=== PATIENT | male | born 1945 | race Caucasian/White ===

== ENCOUNTER 2020-06-22 11:05 | Inpatient (IN) ==
[2020-06-22] MEDS ORDERED: Isovue-370 500 ML BOTTLE IVP ONE (11:41)
[2020-06-22 12:18] LABS: Basophils % 0.2 %; Eosinophils % 0.1 %; Hematocrit 49.8 % (37.5-50.1); Hemoglobin 15.9 g/dL (12.9-16.9); Immature Granulocytes % 0.6 % (0-4); Immature Platelets 6.2 % (1.1-6.1); Lymphocytes # 2.3 K/mcL (0.6-4.6); Lymphocytes % 23.4 %; Mean Corpuscular HGB Conc 31.9 g/dL (31.6-35.5); Mean Corpuscular Hemoglobin 29.9 pg (28.0-33.3); Mean Corpuscular Volume 93.8 fL (83.0-100.0); Mean Platelet Volume 10.8 fL (9.4-12.4); Monocytes # 1.2 K/mcL (0.0-1.3); Monocytes % 12.3 %; Neutrophils # 6.2 K/mcL (1.6-8.9); Platelet Count 132 K/mcL (140-400); Red Blood Count 5.31 M/mcL (4.19-5.50); Red Cell Distribution Width 12.9 % (11.5-14.5); Segmented Neutrophils % 63.4 %; White Blood Count 9.8 K/mcL (4.3-11.1)
[2020-06-22 12:35] LABS: Alanine Aminotransferase 43 Units/L (7-52); Albumin 3.9 g/dL (3.5-5.7); Albumin/Globulin Ratio 1.2 (1.1-2.2); Alkaline Phosphatase 55 Units/L (34-104); Aspartate Amino Transferase 31 Units/L (13-39); BUN/Creatinine Ratio 22 (6-26); Bilirubin,Direct 0.1 mg/dL (0.0-0.2); Bilirubin,Indirect 0.3 mg/dL (0.0-1.0); Bilirubin,Total 0.4 mg/dL (0.3-1.0); Blood Urea Nitrogen 23 mg/dL (8-23); Carbon Dioxide 26 mEq/L (23-29); Chloride 100 mEq/L (98-107); Globulin 3.3 g/dL (2.4-3.5); Glucose 197 mg/dL (70-105); Lipase 23 Units/L (11-82); Magnesium 1.4 mg/dL (1.6-2.6); Osmolality,Calculated 289 (280-300); Potassium 4.4 mEq/L (3.5-5.1); Sodium 135 mEq/L (136-145); Total Protein 7.2 g/dL (6.4-8.9); Troponin I < 0.03 ng/mL (< 0.04); eGFR For African Americans > 60 (> 60); eGFR For Non-African Americans > 60 (> 60)
[2020-06-22 13:37] LABS: Bilirubin,Urine Negative (Negative); Blood,Urine Large (Negative); Clarity,Urine Clear (Clear); Color,Urine Yellow (Yellow); Glucose,Urine (UA) 200 mg/dL (Normal); Ketones,Urine 20 mg/dL (Negative); Leukocyte Esterase,Urine Negative (Negative); Mucus,Urine Few per lpf (None-Few); Nitrite,Urine Negative (Negative); PH,Urine 5.5 pH Units (5.0-8.0); Protein,Urine 100 mg/dL (Neg-Trace); RBC,Urine TNTC per hpf (0-3); Renal Epithelial Cells,Urine Few per hpf (None-Few); Specific Gravity,Urine > 1.030 (1.010-1.025); Squamous Epithelial Cell,Urine Few per hpf (None-Few); Transitional Epi Cells,Urine Few per hpf (None-Few); Urobilinogen,Urine Normal (Normal); WBC,Urine 0-3 per hpf (0-3)
[2020-06-22 13:58] LABS: Adenovirus Not Detected (Not Detect); Bordetella Pertussis Not Detected (Not Detect); Chlamydophila pneumoniae Not Detected (Not Detect); Coronavirus 229E Not Detected (Not Detect); Coronavirus HKU1 Not Detected (Not Detect); Coronavirus NL63 Not Detected (Not Detect); Coronavirus OC43 Not Detected (Not Detect); Human Metapneumovirus Not Detected (Not Detect); Human Rhinovirus/Enterovirus Not Detected (Not Detect); Influenza A Subtype 2009 H1 Not Detected (Not Detect); Influenza B Not Detected (Not Detect); Mycoplasma pneumoniae Not Detected (Not Detect); Parainfluenza Virus 1 Not Detected (Not Detect); Parainfluenza Virus 2 Not Detected (Not Detect); Parainfluenza Virus 3 Not Detected (Not Detect); Parainfluenza Virus 4 Not Detected (Not Detect); Respiratory Syncytial Virus Not Detected (Not Detect)
[2020-06-22 13:59] LABS: SARS-CoV-2 DETECTED (Not Detect)
[2020-06-22] MEDS ORDERED: dexAMETHasone 4 MG TABLET PO SCH (14:00)
[2020-06-22] MEDS ORDERED: Naloxone 0.4 MG/ML INJ IVP PRN (15:30)
[2020-06-22] MEDS ORDERED: Mag Hydrox/Al Hydrox/Simeth 30 ML UDC PO PRN (15:30)
[2020-06-22] MEDS ORDERED: Dextrose Gel 15 GM/37.5 ML TUBE PO PRN ×2 (15:37)
[2020-06-22] MEDS ORDERED: D5% in Water 1,000 ML IVC PRN (15:37)
[2020-06-22] MEDS ORDERED: *HR* Dextrose 50 % in Water (Vial) 50 ML VIAL IVP PRN (15:37)
[2020-06-22 16:17] LABS: C-Reactive Protein 19 mg/L (Less than 10); Lactate Dehydrogenase 225 Units/L (140-271)
[2020-06-22 16:35] LABS: Ferritin 257 ng/mL (20-250)
[2020-06-22] MEDS: Ipratropium 1 PUFF INHALER IH SCH ×2 (16:48→20:28)
[2020-06-22 16:50] LABS: Fibrinogen 458 mg/dL (169-393)
[2020-06-22 16:55] LABS: D-Dimer 537 ng/mLFEU (0-500)
[2020-06-22] MEDS: Dexamethasone 4 MG/ML VIAL IVP SCH (17:02)
[2020-06-22] MEDS: Ondansetron ODT 4 MG TAB.RAPDIS SL PRN (17:03)
[2020-06-22] MEDS: Insulin LISPRO 300 UNITS/3 ML VIAL SUBQ SCH ×2 (18:19→20:31)
[2020-06-23] MEDS: Ipratropium 1 PUFF INHALER IH SCH ×7 (00:04→23:11)
[2020-06-23 05:35] LABS: Basophils % 0.1 %; Hematocrit 49.6 % (37.5-50.1); Hemoglobin 15.3 g/dL (12.9-16.9); Immature Granulocytes % 0.5 % (0-4); Lymphocytes # 2.5 K/mcL (0.6-4.6); Lymphocytes % 30.8 %; Mean Corpuscular HGB Conc 30.8 g/dL (31.6-35.5); Mean Corpuscular Hemoglobin 29.3 pg (28.0-33.3); Mean Platelet Volume 10.7 fL (9.4-12.4); Monocytes # 1.1 K/mcL (0.0-1.3); Monocytes % 14.2 %; Neutrophils # 4.4 K/mcL (1.6-8.9); Platelet Count 136 K/mcL (140-400); Red Blood Count 5.22 M/mcL (4.19-5.50); Red Cell Distribution Width 12.8 % (11.5-14.5); Segmented Neutrophils % 54.4 %
[2020-06-23 05:59] LABS: Alanine Aminotransferase 35 Units/L (7-52); Albumin 3.7 g/dL (3.5-5.7); Albumin/Globulin Ratio 1.2 (1.1-2.2); Alkaline Phosphatase 49 Units/L (34-104); Aspartate Amino Transferase 26 Units/L (13-39); BUN/Creatinine Ratio 23 (6-26); Bilirubin,Total 0.4 mg/dL (0.3-1.0); Blood Urea Nitrogen 22 mg/dL (8-23); Calcium 8.9 mg/dL (8.6-10.3); Carbon Dioxide 27 mEq/L (23-29); Chloride 100 mEq/L (98-107); Globulin 3.2 g/dL (2.4-3.5); Glucose 189 mg/dL (70-105); Magnesium 1.8 mg/dL (1.6-2.6); Osmolality,Calculated 290 (280-300); Potassium 4.4 mEq/L (3.5-5.1); Sodium 136 mEq/L (136-145); Total Protein 6.9 g/dL (6.4-8.9); eGFR For African Americans > 60 (> 60); eGFR For Non-African Americans > 60 (> 60)
[2020-06-23] MEDS ORDERED: *HR* Enoxaparin 40 MG/0.4 ML SYRINGE SQ SCH (06:00)
[2020-06-23] MEDS: Aspirin Enteric Coated 81 MG Tablet PO SCH (09:12)
[2020-06-23] MEDS: Dexamethasone 4 MG/ML VIAL IVP SCH (09:12)
[2020-06-23] MEDS: Insulin LISPRO 300 UNITS/3 ML VIAL SUBQ SCH ×4 (09:14→21:13)
[2020-06-23] MEDS: Ondansetron ODT 4 MG TAB.RAPDIS SL PRN (14:28)
[2020-06-23] MEDS: *HR* Enoxaparin 40 MG/0.4 ML SYRINGE SQ SCH (17:18)
[2020-06-24] MEDS: Ipratropium 1 PUFF INHALER IH SCH ×6 (04:00→23:49)
[2020-06-24] MEDS: Ondansetron ODT 4 MG TAB.RAPDIS SL PRN (04:21)
[2020-06-24] MEDS: *HR* Enoxaparin 40 MG/0.4 ML SYRINGE SQ SCH ×2 (05:02→16:55)
[2020-06-24 07:21] LABS: Basophils % 0.1 %; Eosinophils % 0.1 %; Immature Granulocytes % 0.4 % (0-4); Red Cell Distribution Width 12.8 % (11.5-14.5)
[2020-06-24 07:23] LABS: Immature Platelets 5.6 % (1.1-6.1); Lymphocytes # 2.5 K/mcL (0.6-4.6); Lymphocytes % 27.4 %; Mean Corpuscular HGB Conc 32.6 g/dL (31.6-35.5); Mean Corpuscular Hemoglobin 31.8 pg (28.0-33.3); Mean Corpuscular Volume 97.5 fL (83.0-100.0); Mean Platelet Volume 10.7 fL (9.4-12.4); Monocytes # 1.4 K/mcL (0.0-1.3); Neutrophils # 5.1 K/mcL (1.6-8.9); Platelet Count 126 K/mcL (140-400); Red Blood Count 4.72 M/mcL (4.19-5.50)
[2020-06-24 07:44] LABS: Alanine Aminotransferase 39 Units/L (7-52); Albumin 3.6 g/dL (3.5-5.7); Albumin/Globulin Ratio 1.1 (1.1-2.2); Alkaline Phosphatase 50 Units/L (34-104); Aspartate Amino Transferase 33 Units/L (13-39); BUN/Creatinine Ratio 22 (6-26); Bilirubin,Total 0.5 mg/dL (0.3-1.0); Blood Urea Nitrogen 22 mg/dL (8-23); Calcium 8.8 mg/dL (8.6-10.3); Carbon Dioxide 28 mEq/L (23-29); Chloride 100 mEq/L (98-107); Globulin 3.2 g/dL (2.4-3.5); Glucose 195 mg/dL (70-105); Osmolality,Calculated 289 (280-300); Potassium 4.4 mEq/L (3.5-5.1); Sodium 135 mEq/L (136-145); Total Protein 6.8 g/dL (6.4-8.9); eGFR For African Americans > 60 (> 60); eGFR For Non-African Americans > 60 (> 60)
[2020-06-24] MEDS: Aspirin Enteric Coated 81 MG Tablet PO SCH (08:37)
[2020-06-24] MEDS: Insulin LISPRO 300 UNITS/3 ML VIAL SUBQ SCH ×4 (08:37→20:10)
[2020-06-24] MEDS: Furosemide 20 MG TABLET PO SCH (08:37)
[2020-06-24] MEDS: lisinopriL 10 MG TABLET PO SCH (08:37)
[2020-06-24] MEDS: Isosorbide MONOnitrate (24 HR) 30 MG TAB.ER.24H PO SCH (08:37)
[2020-06-24] MEDS: Dexamethasone 4 MG/ML VIAL IVP SCH (08:38)
[2020-06-24] MEDS ORDERED: NON-FORMULARY MEDICATION 1 EACH EACH (Enalapril/Hydrochlorothiazide [Enalapril-Hctz 5-12.5 PO SCH (09:00)
[2020-06-24] MEDS ORDERED: hydroCHLOROthiazide 25 MG TABLET PO SCH (09:00)
[2020-06-24] MEDS: Insulin DETEMIR 100 UNIT/ML X5UNITS SUBQ SCH ×2 (14:31→20:09)
[2020-06-25] MEDS: Ipratropium 1 PUFF INHALER IH SCH ×5 (04:36→20:07)
[2020-06-25] MEDS: *HR* Enoxaparin 40 MG/0.4 ML SYRINGE SQ SCH ×2 (05:27→17:27)
[2020-06-25 07:19] LABS: Basophils % 0.1 %; Hematocrit 44.2 % (37.5-50.1); Hemoglobin 14.4 g/dL (12.9-16.9); Immature Granulocytes % 0.4 % (0-4); Lymphocytes # 2.6 K/mcL (0.6-4.6); Lymphocytes % 33.6 %; Mean Corpuscular HGB Conc 32.6 g/dL (31.6-35.5); Mean Corpuscular Volume 95.1 fL (83.0-100.0); Mean Platelet Volume 10.8 fL (9.4-12.4); Monocytes # 1.3 K/mcL (0.0-1.3); Monocytes % 16.4 %; Neutrophils # 3.8 K/mcL (1.6-8.9); Platelet Count 146 K/mcL (140-400); Red Blood Count 4.65 M/mcL (4.19-5.50); Red Cell Distribution Width 12.7 % (11.5-14.5); Segmented Neutrophils % 49.5 %; White Blood Count 7.7 K/mcL (4.3-11.1)
[2020-06-25 07:34] LABS: Alanine Aminotransferase 38 Units/L (7-52); Albumin 3.4 g/dL (3.5-5.7); Albumin/Globulin Ratio 1.1 (1.1-2.2); Alkaline Phosphatase 44 Units/L (34-104); Aspartate Amino Transferase 32 Units/L (13-39); BUN/Creatinine Ratio 30 (6-26); Bilirubin,Total 0.4 mg/dL (0.3-1.0); Blood Urea Nitrogen 32 mg/dL (8-23); Calcium 9.1 mg/dL (8.6-10.3); Carbon Dioxide 29 mEq/L (23-29); Chloride 99 mEq/L (98-107); Glucose 200 mg/dL (70-105); Osmolality,Calculated 293 (280-300); Potassium 4.2 mEq/L (3.5-5.1); Sodium 135 mEq/L (136-145); Total Protein 6.4 g/dL (6.4-8.9); eGFR For African Americans > 60 (> 60); eGFR For Non-African Americans > 60 (> 60)
[2020-06-25] MEDS: Insulin LISPRO 300 UNITS/3 ML VIAL SUBQ SCH ×4 (08:32→21:00)
[2020-06-25] MEDS: Furosemide 20 MG TABLET PO SCH (08:34)
[2020-06-25] MEDS: Isosorbide MONOnitrate (24 HR) 30 MG TAB.ER.24H PO SCH (08:34)
[2020-06-25] MEDS: lisinopriL 10 MG TABLET PO SCH (08:34)
[2020-06-25] MEDS: Dexamethasone 4 MG/ML VIAL IVP SCH (08:35)
[2020-06-25] MEDS: Insulin DETEMIR 100 UNIT/ML X5UNITS SUBQ SCH ×2 (08:36→21:02)
[2020-06-25] MEDS: Ondansetron ODT 4 MG TAB.RAPDIS SL PRN (20:58)
[2020-06-26] MEDS: Ipratropium 1 PUFF INHALER IH SCH ×6 (00:06→20:15)
[2020-06-26 02:51] LABS: BUN/Creatinine Ratio 29 (6-26); Blood Urea Nitrogen 29 mg/dL (8-23); Calcium 9.3 mg/dL (8.6-10.3); Carbon Dioxide 31 mEq/L (23-29); Chloride 97 mEq/L (98-107); Glucose 180 mg/dL (70-105); Osmolality,Calculated 290 (280-300); Potassium 4.4 mEq/L (3.5-5.1); Sodium 135 mEq/L (136-145); eGFR For African Americans > 60 (> 60); eGFR For Non-African Americans > 60 (> 60)
[2020-06-26] MEDS: *HR* Enoxaparin 40 MG/0.4 ML SYRINGE SQ SCH ×2 (06:12→17:23)
[2020-06-26] MEDS ORDERED: Furosemide 20 MG TABLET PO SCH (09:00)
[2020-06-26] MEDS: Isosorbide MONOnitrate (24 HR) 30 MG TAB.ER.24H PO SCH (09:07)
[2020-06-26] MEDS: lisinopriL 10 MG TABLET PO SCH (09:07)
[2020-06-26] MEDS: Dexamethasone 4 MG/ML VIAL IVP SCH (09:07)
[2020-06-26] MEDS: Insulin DETEMIR 100 UNIT/ML X5UNITS SUBQ SCH ×2 (09:07→21:53)
[2020-06-26] MEDS: Insulin LISPRO 300 UNITS/3 ML VIAL SUBQ SCH ×4 (09:10→21:53)
[2020-06-26] MEDS ORDERED: Dexamethasone 4 MG/ML VIAL IVP ONE (12:00)
[2020-06-26 12:56] LABS: Albumin 3.6 g/dL (3.5-5.7); Albumin/Globulin Ratio 1.1 (1.1-2.2); Bilirubin,Direct 0.2 mg/dL (0.0-0.2); Bilirubin,Indirect 0.2 mg/dL (0.0-1.0); Bilirubin,Total 0.4 mg/dL (0.3-1.0); Globulin 3.3 g/dL (2.4-3.5); Total Protein 6.9 g/dL (6.4-8.9)
[2020-06-26] MEDS ORDERED: Remdesivir 200 MG in 0.9 % Sodium Chloride 100 ML IVPB ONE (14:00)
[2020-06-26] MEDS: Benzonatate 100 MG CAPSULE PO SCH ×2 (14:34→21:52)
[2020-06-26] MEDS ORDERED: Furosemide 20 MG/2 ML VIAL IVP ONE (18:00)
[2020-06-27] MEDS: Ipratropium 1 PUFF INHALER IH SCH ×7 (00:39→23:13)
[2020-06-27] MEDS: *HR* Enoxaparin 40 MG/0.4 ML SYRINGE SQ SCH ×2 (05:54→17:43)
[2020-06-27 07:17] LABS: Basophils % 0.1 %; Hemoglobin 15.1 g/dL (12.9-16.9); Immature Granulocytes % 0.5 % (0-4); Lymphocytes # 2.3 K/mcL (0.6-4.6); Lymphocytes % 27.2 %; Mean Corpuscular HGB Conc 35.1 g/dL (31.6-35.5); Mean Corpuscular Hemoglobin 33.3 pg (28.0-33.3); Mean Corpuscular Volume 94.7 fL (83.0-100.0); Mean Platelet Volume 10.6 fL (9.4-12.4); Monocytes # 1.3 K/mcL (0.0-1.3); Monocytes % 15.7 %; Neutrophils # 4.7 K/mcL (1.6-8.9); Platelet Count 166 K/mcL (140-400); Red Blood Count 4.54 M/mcL (4.19-5.50); Red Cell Distribution Width 12.5 % (11.5-14.5); Segmented Neutrophils % 56.5 %; White Blood Count 8.4 K/mcL (4.3-11.1)
[2020-06-27 07:44] LABS: Alanine Aminotransferase 31 Units/L (7-52); Albumin 3.5 g/dL (3.5-5.7); Albumin/Globulin Ratio 1.1 (1.1-2.2); Alkaline Phosphatase 43 Units/L (34-104); Aspartate Amino Transferase 24 Units/L (13-39); BUN/Creatinine Ratio 29 (6-26); Bilirubin,Total 0.3 mg/dL (0.3-1.0); Blood Urea Nitrogen 26 mg/dL (8-23); Calcium 9.3 mg/dL (8.6-10.3); Carbon Dioxide 29 mEq/L (23-29); Chloride 95 mEq/L (98-107); Globulin 3.3 g/dL (2.4-3.5); Glucose 273 mg/dL (70-105); Lactate Dehydrogenase 261 Units/L (140-271); Osmolality,Calculated 292 (280-300); Potassium 4.5 mEq/L (3.5-5.1); Sodium 134 mEq/L (136-145); Total Protein 6.8 g/dL (6.4-8.9); eGFR For African Americans > 60 (> 60); eGFR For Non-African Americans > 60 (> 60)
[2020-06-27 07:53] LABS: Ferritin 479 ng/mL (20-250)
[2020-06-27] MEDS: Benzonatate 100 MG CAPSULE PO SCH ×3 (08:11→20:50)
[2020-06-27] MEDS: Furosemide 40 MG TABLET PO SCH ×2 (08:11→17:41)
[2020-06-27] MEDS: lisinopriL 10 MG TABLET PO SCH (08:11)
[2020-06-27] MEDS: Insulin LISPRO 300 UNITS/3 ML VIAL SUBQ SCH ×4 (08:27→22:03)
[2020-06-27] MEDS: Isosorbide MONOnitrate (24 HR) 30 MG TAB.ER.24H PO SCH (08:30)
[2020-06-27] MEDS ORDERED: Dexamethasone 4 MG/ML VIAL IVP SCH (09:00)
[2020-06-27] MEDS: Insulin DETEMIR 100 UNIT/ML X5UNITS SUBQ SCH (09:12)
[2020-06-27] MEDS: polyethylene glycoL 3350 17 GM POWD.PACK PO SCH ×2 (13:41→16:08)
[2020-06-27] MEDS: Remdesivir 100 MG in 0.9 % Sodium Chloride 100 ML IVPB SCH (15:37)
[2020-06-27] MEDS: Ondansetron ODT 4 MG TAB.RAPDIS SL PRN (20:54)
[2020-06-27] MEDS ORDERED: Insulin DETEMIR 100 UNIT/ML X5UNITS SUBQ SCH (21:00)
[2020-06-28] MEDS: Ipratropium 1 PUFF INHALER IH SCH ×6 (03:45→23:29)
[2020-06-28] MEDS: *HR* Enoxaparin 40 MG/0.4 ML SYRINGE SQ SCH ×2 (05:24→23:00)
[2020-06-28] MEDS ORDERED: Ondansetron ODT 4 MG TAB.RAPDIS SL PRN (08:08)
[2020-06-28] MEDS: Dexamethasone 4 MG/ML VIAL IVP SCH (08:45)
[2020-06-28] MEDS: polyethylene glycoL 3350 17 GM POWD.PACK PO SCH ×2 (08:45→09:36)
[2020-06-28] MEDS: lisinopriL 10 MG TABLET PO SCH ×2 (08:45→09:36)
[2020-06-28] MEDS: Insulin LISPRO 300 UNITS/3 ML VIAL SUBQ SCH ×3 (08:46→21:07)
[2020-06-28] MEDS: Isosorbide MONOnitrate (24 HR) 30 MG TAB.ER.24H PO SCH ×2 (08:52→09:36)
[2020-06-28] MEDS: Benzonatate 100 MG CAPSULE PO SCH ×3 (08:52→21:07)
[2020-06-28] MEDS ORDERED: Pantoprazole 40 MG VIAL IVP SCH (09:00)
[2020-06-28] MEDS: Furosemide 40 MG TABLET PO SCH (09:30)
[2020-06-28 10:03] LABS: Alanine Aminotransferase 34 Units/L (7-52); Albumin 3.5 g/dL (3.5-5.7); Alkaline Phosphatase 52 Units/L (34-104); Aspartate Amino Transferase 27 Units/L (13-39); BUN/Creatinine Ratio 32 (6-26); Bilirubin,Total 0.4 mg/dL (0.3-1.0); Blood Urea Nitrogen 32 mg/dL (8-23); Calcium 9.2 mg/dL (8.6-10.3); Carbon Dioxide 35 mEq/L (23-29); Chloride 93 mEq/L (98-107); Globulin 3.5 g/dL (2.4-3.5); Glucose 260 mg/dL (70-105); Osmolality,Calculated 294 (280-300); Potassium 4.3 mEq/L (3.5-5.1); Sodium 134 mEq/L (136-145); eGFR For African Americans > 60 (> 60); eGFR For Non-African Americans > 60 (> 60)
[2020-06-28 11:18] LABS: Basophils % 0.3 %; Hematocrit 48.4 % (37.5-50.1); Hemoglobin 15.8 g/dL (12.9-16.9); Immature Granulocytes % 0.5 % (0-4); Lymphocytes # 2.8 K/mcL (0.6-4.6); Lymphocytes % 18.9 %; Mean Corpuscular HGB Conc 32.6 g/dL (31.6-35.5); Mean Corpuscular Hemoglobin 31.2 pg (28.0-33.3); Mean Corpuscular Volume 95.7 fL (83.0-100.0); Mean Platelet Volume 11.3 fL (9.4-12.4); Monocytes # 1.3 K/mcL (0.0-1.3); Monocytes % 9.1 %; Neutrophils # 10.5 K/mcL (1.6-8.9); Platelet Count 192 K/mcL (140-400); Red Blood Count 5.06 M/mcL (4.19-5.50); Red Cell Distribution Width 12.7 % (11.5-14.5); Segmented Neutrophils % 71.2 %
[2020-06-28 11:19] LABS: White Blood Count 14.7 K/mcL (4.3-11.1)
[2020-06-28] MEDS: Remdesivir 100 MG in 0.9 % Sodium Chloride 100 ML IVPB SCH (14:37)
[2020-06-28] MEDS: Insulin DETEMIR 100 UNIT/ML X5UNITS SUBQ SCH (21:09)
[2020-06-28] MEDS ORDERED: Furosemide 40 MG/4 ML VIAL ONE (22:54)
[2020-06-29] MEDS ORDERED: *HR* LORazepam 2 MG/ML VIAL IVP ONE (02:31)
[2020-06-29] MEDS ORDERED: *HR* LORazepam 2 MG/ML VIAL ONE (02:34)
[2020-06-29 03:01] LABS: Basophils # 0.1 K/mcL (0.0-0.2); Basophils % 0.3 %; Hemoglobin 15.6 g/dL (12.9-16.9); Immature Granulocytes % 0.5 % (0-4); Lymphocytes # 3.6 K/mcL (0.6-4.6); Lymphocytes % 19.2 %; Mean Corpuscular HGB Conc 33.2 g/dL (31.6-35.5); Mean Corpuscular Hemoglobin 31.1 pg (28.0-33.3); Mean Corpuscular Volume 93.8 fL (83.0-100.0); Mean Platelet Volume 10.7 fL (9.4-12.4); Monocytes # 1.8 K/mcL (0.0-1.3); Monocytes % 9.9 %; Neutrophils # 12.9 K/mcL (1.6-8.9); Platelet Count 206 K/mcL (140-400); Red Blood Count 5.01 M/mcL (4.19-5.50); Red Cell Distribution Width 12.7 % (11.5-14.5); Segmented Neutrophils % 70.1 %; White Blood Count 18.5 K/mcL (4.3-11.1)
[2020-06-29 03:21] LABS: Alanine Aminotransferase 40 Units/L (7-52); Albumin 3.2 g/dL (3.5-5.7); Albumin/Globulin Ratio 0.9 (1.1-2.2); Alkaline Phosphatase 48 Units/L (34-104); Aspartate Amino Transferase 32 Units/L (13-39); BUN/Creatinine Ratio 33 (6-26); Bilirubin,Total 0.6 mg/dL (0.3-1.0); Blood Urea Nitrogen 33 mg/dL (8-23); Calcium 9.1 mg/dL (8.6-10.3); Carbon Dioxide 30 mEq/L (23-29); Chloride 96 mEq/L (98-107); Globulin 3.6 g/dL (2.4-3.5); Glucose 306 mg/dL (70-105); Lactate Dehydrogenase 295 Units/L (140-271); Osmolality,Calculated 303 (280-300); Potassium 4.6 mEq/L (3.5-5.1); Sodium 137 mEq/L (136-145); Total Protein 6.8 g/dL (6.4-8.9); eGFR For African Americans > 60 (> 60); eGFR For Non-African Americans > 60 (> 60)
[2020-06-29] MEDS: Ipratropium 1 PUFF INHALER IH SCH ×5 (03:30→20:10)
[2020-06-29 03:39] LABS: Ferritin 727 ng/mL (20-250)
[2020-06-29] MEDS ORDERED: Furosemide 40 MG/4 ML VIAL ONE (03:43)
[2020-06-29] MEDS ORDERED: Morphine Sulfate 2 MG/ML SYRINGE IVP ONE (03:47)
[2020-06-29] MEDS ORDERED: Furosemide 40 MG/4 ML VIAL IVP ONE (03:47)
[2020-06-29 03:48] LABS: ABG Base Excess 6 mEq/L (-2 to 3); ABG HCO3 32 mEq/L (21-27); ABG Oxygen Saturation 80 % (95-98); ABG PCO2 50 mmHg (35-45); ABG PH 7.41 pH Units (7.32-7.45); ABG PO2 44 mmHg (85-104); ABG TCO2 34 mEq/L (20-26); Blood Gas Modality ASSIST CONTROL
[2020-06-29] MEDS ORDERED: *HR* Succinylcholine 200 MG/10 ML VIAL IVP ONE (04:55)
[2020-06-29] MEDS ORDERED: *HR* Phenylephrine 10 MG/ML VIAL ONE (04:55)
[2020-06-29] MEDS ORDERED: *HR* PHENYLEPHRINE 1,000 MCG/10 ML SYRINGE IVP ONE (04:56)
[2020-06-29] MEDS ORDERED: *HR* FentaNYL (PF) 100 MCG/2 ML VIAL ONE (04:56)
[2020-06-29] MEDS ORDERED: Artificial Tears SOLN 15 ML BOTTLE BOTH EYES PRN (05:16)
[2020-06-29] MEDS: FentaNYL (PF) 1,000 MCG/100 ML IV.SOLN IVC SCH ×3 (05:45→20:05)
[2020-06-29] MEDS: Furosemide 40 MG TABLET PO SCH ×2 (06:17→09:28)
[2020-06-29] MEDS: Insulin LISPRO 300 UNITS/3 ML VIAL SUBQ SCH ×5 (06:17→20:33)
[2020-06-29] MEDS: Midazolam HCl 50 MG/100 ML IV.SOLN IVC SCH ×2 (06:35→15:40)
[2020-06-29 06:38] LABS: ABG Base Excess 5 mEq/L (-2 to 3); ABG HCO3 33 mEq/L (21-27); ABG Oxygen Saturation 86 % (95-98); ABG PCO2 59 mmHg (35-45); ABG PH 7.35 pH Units (7.32-7.45); ABG PO2 55 mmHg (85-104); ABG TCO2 35 mEq/L (20-26); Blood Gas Modality ASSIST CONTROL; Blood Gas VT 480 cc
[2020-06-29] MEDS: *HR* Enoxaparin 40 MG/0.4 ML SYRINGE SQ SCH ×2 (06:54→16:52)
[2020-06-29] MEDS: Cisatracurium 200 MG in 0.9 % Sodium Chloride 180 ML IVC SCH ×2 (08:25→19:41)
[2020-06-29] MEDS ORDERED: 0.9 % Sodium Chloride 1,000 ML ONE (09:17)
[2020-06-29] MEDS: Chlorhexidine Rinse 15 ML MOUTHWASH MM SCH ×2 (09:26→20:35)
[2020-06-29] MEDS: Pantoprazole 40 MG VIAL IVP SCH (09:26)
[2020-06-29] MEDS: Nystatin POWDER 30 GM BOTTLE TP SCH (09:28)
[2020-06-29] MEDS: Dexamethasone 4 MG/ML VIAL IVP SCH (09:28)
[2020-06-29] MEDS: polyethylene glycoL 3350 17 GM POWD.PACK PO SCH (09:30)
[2020-06-29] MEDS: Benzonatate 100 MG CAPSULE PO SCH (09:31)
[2020-06-29] MEDS: Artificial Tears SOLN 15 ML BOTTLE BOTH EYES SCH ×4 (09:32→20:32)
[2020-06-29] MEDS: Insulin DETEMIR 100 UNIT/ML X5UNITS SUBQ SCH ×2 (09:34→20:36)
[2020-06-29] MEDS: Isosorbide MONOnitrate (24 HR) 30 MG TAB.ER.24H PO SCH (10:48)
[2020-06-29] MEDS: lisinopriL 10 MG TABLET PO SCH (10:48)
[2020-06-29 11:23] LABS: ABG Base Excess 5 mEq/L (-2 to 3); ABG HCO3 32 mEq/L (21-27); ABG Oxygen Saturation 85 % (95-98); ABG PCO2 51 mmHg (35-45); ABG PO2 51 mmHg (85-104); ABG TCO2 33 mEq/L (20-26); Blood Gas VT 480 cc
[2020-06-29] MEDS ORDERED: Lidocaine -MPF 1% 5 ML AMPUL INFILT ONE (11:40)
[2020-06-29] MEDS ORDERED: Lidocaine -MPF 2% 5 ML VIAL INFILT ONE (12:48)
[2020-06-29] MEDS: Remdesivir 100 MG in 0.9 % Sodium Chloride 100 ML IVPB SCH (14:51)
[2020-06-29] MEDS: Furosemide 40 MG/4 ML VIAL IVP SCH (16:52)
[2020-06-29 21:33] LABS: ABG Base Excess 6 mEq/L (-2 to 3); ABG HCO3 33 mEq/L (21-27); ABG Oxygen Saturation 99 % (95-98); ABG PCO2 50 mmHg (35-45); ABG PH 7.42 pH Units (7.32-7.45); ABG PO2 134 mmHg (85-104); ABG TCO2 34 mEq/L (20-26); Blood Gas Modality ASSIST CONTROL; Blood Gas VT 480 cc
[2020-06-30] MEDS: Artificial Tears SOLN 15 ML BOTTLE BOTH EYES SCH ×7 (00:01→23:21)
[2020-06-30] MEDS: Nystatin POWDER 30 GM BOTTLE TP SCH ×3 (00:01→21:18)
[2020-06-30] MEDS: Ipratropium 1 PUFF INHALER IH SCH ×7 (00:22→23:07)
[2020-06-30] MEDS: Midazolam HCl 50 MG/100 ML IV.SOLN IVC SCH ×3 (02:17→23:00)
[2020-06-30 03:17] LABS: Basophils % 0.3 %; Hematocrit 44.7 % (37.5-50.1); Hemoglobin 14.8 g/dL (12.9-16.9); Immature Granulocytes % 0.4 % (0-4); Lymphocytes % 19.2 %; Mean Corpuscular HGB Conc 33.1 g/dL (31.6-35.5); Mean Corpuscular Volume 93.7 fL (83.0-100.0); Mean Platelet Volume 10.6 fL (9.4-12.4); Monocytes # 0.8 K/mcL (0.0-1.3); Monocytes % 5.3 %; Neutrophils # 11.6 K/mcL (1.6-8.9); Platelet Count 171 K/mcL (140-400); Red Blood Count 4.77 M/mcL (4.19-5.50); Red Cell Distribution Width 12.6 % (11.5-14.5); Segmented Neutrophils % 74.8 %; White Blood Count 15.6 K/mcL (4.3-11.1)
[2020-06-30 03:18] LABS: INR 1.4; Prothrombin Time 15.8 Seconds (9.4-12.1)
[2020-06-30 03:20] LABS: Activated Partial Thrombo Time 27.7 Seconds (26.0-36.0)
[2020-06-30] MEDS: Cisatracurium 200 MG in 0.9 % Sodium Chloride 180 ML IVC SCH ×3 (03:35→19:00)
[2020-06-30 04:09] LABS: ABG Base Excess 6 mEq/L (-2 to 3); ABG HCO3 32 mEq/L (21-27); ABG Oxygen Saturation 98 % (95-98); ABG PCO2 47 mmHg (35-45); ABG PH 7.43 pH Units (7.32-7.45); ABG PO2 110 mmHg (85-104); ABG TCO2 33 mEq/L (20-26); Blood Gas Modality ASSIST CONTROL; Blood Gas VT 480 cc
[2020-06-30] MEDS: Insulin LISPRO 300 UNITS/3 ML VIAL SUBQ SCH ×7 (04:09→23:22)
[2020-06-30 04:53] LABS: Alanine Aminotransferase 32 Units/L (7-52); Albumin/Globulin Ratio 0.8 (1.1-2.2); Alkaline Phosphatase 47 Units/L (34-104); Aspartate Amino Transferase 21 Units/L (13-39); BUN/Creatinine Ratio 40 (6-26); Bilirubin,Total 0.7 mg/dL (0.3-1.0); Blood Urea Nitrogen 43 mg/dL (8-23); Calcium 8.8 mg/dL (8.6-10.3); Carbon Dioxide 30 mEq/L (23-29); Chloride 100 mEq/L (98-107); Globulin 3.9 g/dL (2.4-3.5); Glucose 200 mg/dL (70-105); Magnesium 2.1 mg/dL (1.6-2.6); Osmolality,Calculated 304 (280-300); Sodium 139 mEq/L (136-145); Total Protein 6.9 g/dL (6.4-8.9); eGFR For African Americans > 60 (> 60); eGFR For Non-African Americans > 60 (> 60)
[2020-06-30] MEDS: Doxycycline 100 MG in 0.9 % Sodium Chloride Mini Bag 100 ML IVPB SCH ×2 (05:44→17:43)
[2020-06-30] MEDS: *HR* Enoxaparin 40 MG/0.4 ML SYRINGE SQ SCH ×2 (05:58→17:43)
[2020-06-30] MEDS: Pantoprazole 40 MG VIAL IVP SCH (07:48)
[2020-06-30] MEDS: Furosemide 40 MG/4 ML VIAL IVP SCH (07:48)
[2020-06-30] MEDS: Piperacillin/Tazobactam 3.375 GM in 0.9 % Sodium Chloride Mini Bag 100 ML IVPB SCH ×4 (07:49→23:22)
[2020-06-30] MEDS: Chlorhexidine Rinse 15 ML MOUTHWASH MM SCH ×2 (07:49→20:37)
[2020-06-30] MEDS: Dexamethasone 4 MG/ML VIAL IVP SCH (07:50)
[2020-06-30] MEDS: Insulin DETEMIR 100 UNIT/ML X5UNITS SUBQ SCH ×2 (07:51→21:18)
[2020-06-30] MEDS: FentaNYL (PF) 1,000 MCG/100 ML IV.SOLN IVC SCH ×2 (12:30→22:10)
[2020-06-30] MEDS: Remdesivir 100 MG in 0.9 % Sodium Chloride 100 ML IVPB SCH (15:39)
[2020-07-01] MEDS: Cisatracurium 200 MG in 0.9 % Sodium Chloride 180 ML IVC SCH ×3 (03:00→19:15)
[2020-07-01] MEDS: Ipratropium 1 PUFF INHALER IH SCH ×6 (03:54→23:25)
[2020-07-01] MEDS: Artificial Tears SOLN 15 ML BOTTLE BOTH EYES SCH ×6 (03:58→23:55)
[2020-07-01] MEDS: Insulin LISPRO 300 UNITS/3 ML VIAL SUBQ SCH ×6 (03:59→23:56)
[2020-07-01 04:00] LABS: ABG Base Excess 4 mEq/L (-2 to 3); ABG HCO3 30 mEq/L (21-27); ABG Oxygen Saturation 93 % (95-98); ABG PCO2 48 mmHg (35-45); ABG PH 7.41 pH Units (7.32-7.45); ABG PO2 67 mmHg (85-104); ABG TCO2 32 mEq/L (20-26); Blood Gas Modality ASSIST CONTROL; Blood Gas VT 480 cc
[2020-07-01 04:25] LABS: Basophils # 0.1 K/mcL (0.0-0.2); Basophils % 0.2 %; Eosinophils % 0.1 %; Hematocrit 47.3 % (37.5-50.1); Hemoglobin 16.3 g/dL (12.9-16.9); Immature Granulocytes % 0.7 % (0-4); Lymphocytes # 3.8 K/mcL (0.6-4.6); Mean Corpuscular HGB Conc 34.5 g/dL (31.6-35.5); Mean Corpuscular Volume 92.9 fL (83.0-100.0); Mean Platelet Volume 11.4 fL (9.4-12.4); Monocytes # 1.3 K/mcL (0.0-1.3); Monocytes % 5.9 %; Platelet Count 222 K/mcL (140-400); Red Blood Count 5.09 M/mcL (4.19-5.50); Red Cell Distribution Width 12.7 % (11.5-14.5); Segmented Neutrophils % 76.1 %; White Blood Count 22.3 K/mcL (4.3-11.1)
[2020-07-01 04:33] LABS: INR 1.4; Prothrombin Time 16.1 Seconds (9.4-12.1)
[2020-07-01 04:36] LABS: Activated Partial Thrombo Time 23.4 Seconds (26.0-36.0)
[2020-07-01 04:38] LABS: Alanine Aminotransferase 33 Units/L (7-52); Albumin 2.9 g/dL (3.5-5.7); Albumin/Globulin Ratio 0.6 (1.1-2.2); Alkaline Phosphatase 67 Units/L (34-104); Aspartate Amino Transferase 24 Units/L (13-39); BUN/Creatinine Ratio 40 (6-26); Bilirubin,Total 0.6 mg/dL (0.3-1.0); Blood Urea Nitrogen 49 mg/dL (8-23); Calcium 9.1 mg/dL (8.6-10.3); Carbon Dioxide 29 mEq/L (23-29); Chloride 104 mEq/L (98-107); Globulin 4.5 g/dL (2.4-3.5); Glucose 172 mg/dL (70-105); Magnesium 2.4 mg/dL (1.6-2.6); Osmolality,Calculated 313 (280-300); Phosphorous 4.1 mg/dL (2.7-4.5); Sodium 143 mEq/L (136-145); Total Protein 7.4 g/dL (6.4-8.9); eGFR For African Americans > 60 (> 60); eGFR For Non-African Americans 58 (> 60)
[2020-07-01 04:42] LABS: VBG Ionized Calcium 1.09 mmol/L (1.15-1.35)
[2020-07-01] MEDS: Doxycycline 100 MG in 0.9 % Sodium Chloride Mini Bag 100 ML IVPB SCH ×2 (05:22→17:02)
[2020-07-01] MEDS: *HR* Enoxaparin 40 MG/0.4 ML SYRINGE SQ SCH ×2 (05:22→17:01)
[2020-07-01] MEDS: Calcium Gluconate 1gm/50mL 1 GM/50 ML BAG IVPB SCH ×2 (05:23→05:57)
[2020-07-01] MEDS: FentaNYL (PF) 1,000 MCG/100 ML IV.SOLN IVC SCH ×3 (06:28→23:38)
[2020-07-01] MEDS: Dexamethasone 4 MG/ML VIAL IVP SCH (08:19)
[2020-07-01] MEDS: Piperacillin/Tazobactam 3.375 GM in 0.9 % Sodium Chloride Mini Bag 100 ML IVPB SCH ×3 (08:20→23:55)
[2020-07-01] MEDS: Furosemide 40 MG/4 ML VIAL IVP SCH (08:20)
[2020-07-01] MEDS: Pantoprazole 40 MG VIAL IVP SCH (08:20)
[2020-07-01] MEDS: Nystatin POWDER 30 GM BOTTLE TP SCH ×2 (08:21→20:54)
[2020-07-01] MEDS: Insulin DETEMIR 100 UNIT/ML X5UNITS SUBQ SCH ×2 (08:23→20:53)
[2020-07-01] MEDS: Midazolam HCl 50 MG/100 ML IV.SOLN IVC SCH ×2 (10:00→20:57)
[2020-07-01] MEDS: Chlorhexidine Rinse 15 ML MOUTHWASH MM SCH ×2 (10:01→20:53)
[2020-07-02] MEDS: Insulin LISPRO 300 UNITS/3 ML VIAL SUBQ SCH ×6 (03:15→23:59)
[2020-07-02] MEDS: Artificial Tears SOLN 15 ML BOTTLE BOTH EYES SCH ×6 (03:15→23:05)
[2020-07-02] MEDS: Ipratropium 1 PUFF INHALER IH SCH ×6 (03:19→23:24)
[2020-07-02] MEDS: Cisatracurium 200 MG in 0.9 % Sodium Chloride 180 ML IVC SCH ×2 (03:47→18:52)
[2020-07-02 03:55] LABS: VBG Ionized Calcium 1.11 mmol/L (1.15-1.35)
[2020-07-02 04:15] LABS: Alanine Aminotransferase 45 Units/L (7-52); Albumin 2.7 g/dL (3.5-5.7); Alkaline Phosphatase 53 Units/L (34-104); Aspartate Amino Transferase 42 Units/L (13-39); BUN/Creatinine Ratio 44 (6-26); Bilirubin,Total 0.6 mg/dL (0.3-1.0); Blood Urea Nitrogen 58 mg/dL (8-23); Calcium 8.5 mg/dL (8.6-10.3); Carbon Dioxide 29 mEq/L (23-29); Chloride 105 mEq/L (98-107); Glucose 289 mg/dL (70-105); Magnesium 2.2 mg/dL (1.6-2.6); Osmolality,Calculated 321 (280-300); Phosphorous 3.9 mg/dL (2.7-4.5); Potassium 4.2 mEq/L (3.5-5.1); Sodium 142 mEq/L (136-145); eGFR For African Americans > 60 (> 60); eGFR For Non-African Americans 53 (> 60)
[2020-07-02 04:29] LABS: ABG Base Excess 5 mEq/L (-2 to 3); ABG HCO3 32 mEq/L (21-27); ABG Oxygen Saturation 95 % (95-98); ABG PCO2 51 mmHg (35-45); ABG PO2 78 mmHg (85-104); ABG TCO2 33 mEq/L (20-26); Blood Gas Modality AF; Blood Gas VT 480 cc
[2020-07-02] MEDS: Doxycycline 100 MG in 0.9 % Sodium Chloride Mini Bag 100 ML IVPB SCH ×2 (05:15→17:35)
[2020-07-02] MEDS: *HR* Enoxaparin 40 MG/0.4 ML SYRINGE SQ SCH ×2 (05:15→17:34)
[2020-07-02 05:57] LABS: Albumin/Globulin Ratio 0.6 (1.1-2.2); Globulin 4.3 g/dL (2.4-3.5)
[2020-07-02 06:51] LABS: Activated Partial Thrombo Time 21.4 Seconds (26.0-36.0); INR 1.4
[2020-07-02 07:12] LABS: Basophils # 0.1 K/mcL (0.0-0.2); Basophils % 0.3 %; Hematocrit 47.1 % (37.5-50.1); Hemoglobin 16.2 g/dL (12.9-16.9); Immature Granulocytes % 0.5 % (0-4); Lymphocytes # 3.4 K/mcL (0.6-4.6); Lymphocytes % 17.8 %; Mean Corpuscular HGB Conc 34.4 g/dL (31.6-35.5); Mean Corpuscular Hemoglobin 33.1 pg (28.0-33.3); Mean Corpuscular Volume 96.3 fL (83.0-100.0); Mean Platelet Volume 11.8 fL (9.4-12.4); Monocytes # 1.7 K/mcL (0.0-1.3); Neutrophils # 13.7 K/mcL (1.6-8.9); Platelet Count 245 K/mcL (140-400); Red Blood Count 4.89 M/mcL (4.19-5.50); Segmented Neutrophils % 72.4 %; White Blood Count 18.9 K/mcL (4.3-11.1)
[2020-07-02] MEDS: Insulin DETEMIR 100 UNIT/ML X5UNITS SUBQ SCH ×2 (07:15→20:19)
[2020-07-02] MEDS: Piperacillin/Tazobactam 3.375 GM in 0.9 % Sodium Chloride Mini Bag 100 ML IVPB SCH ×3 (07:15→23:40)
[2020-07-02] MEDS: Chlorhexidine Rinse 15 ML MOUTHWASH MM SCH ×2 (07:15→20:19)
[2020-07-02] MEDS: Furosemide 40 MG/4 ML VIAL IVP SCH (07:15)
[2020-07-02] MEDS: Pantoprazole 40 MG VIAL IVP SCH (07:16)
[2020-07-02] MEDS: Dexamethasone 4 MG/ML VIAL IVP SCH (07:16)
[2020-07-02] MEDS: Nystatin POWDER 30 GM BOTTLE TP SCH ×3 (07:17→20:51)
[2020-07-02] MEDS: Midazolam HCl 50 MG/100 ML IV.SOLN IVC SCH ×2 (07:52→18:23)
[2020-07-02] MEDS: Neosporin OINT 15 GM TUBE TP SCH ×3 (09:53→20:51)
[2020-07-02] MEDS: FentaNYL (PF) 1,000 MCG/100 ML IV.SOLN IVC SCH ×2 (10:03→17:56)
[2020-07-03] MEDS: FentaNYL (PF) 1,000 MCG/100 ML IV.SOLN IVC SCH ×2 (03:45→10:40)
[2020-07-03] MEDS: Ipratropium 1 PUFF INHALER IH SCH ×6 (03:46→23:28)
[2020-07-03] MEDS: Cisatracurium 200 MG in 0.9 % Sodium Chloride 180 ML IVC SCH (03:48)
[2020-07-03] MEDS: Insulin LISPRO 300 UNITS/3 ML VIAL SUBQ SCH ×5 (04:09→21:06)
[2020-07-03] MEDS: Artificial Tears SOLN 15 ML BOTTLE BOTH EYES SCH ×5 (04:09→20:29)
[2020-07-03] MEDS: Midazolam HCl 50 MG/100 ML IV.SOLN IVC SCH ×3 (04:32→23:13)
[2020-07-03 04:41] LABS: ABG Base Excess 7 mEq/L (-2 to 3); ABG HCO3 35 mEq/L (21-27); ABG Oxygen Saturation 99 % (95-98); ABG PCO2 58 mmHg (35-45); ABG PH 7.39 pH Units (7.32-7.45); ABG PO2 167 mmHg (85-104); ABG TCO2 37 mEq/L (20-26); Blood Gas Modality AF; Blood Gas VT 480 cc
[2020-07-03 04:42] LABS: VBG Ionized Calcium 1.13 mmol/L (1.15-1.35)
[2020-07-03 04:46] LABS: Basophils # 0.1 K/mcL (0.0-0.2); Basophils % 0.3 %; Hematocrit 49.3 % (37.5-50.1); Hemoglobin 15.7 g/dL (12.9-16.9); Lymphocytes # 3.4 K/mcL (0.6-4.6); Mean Corpuscular HGB Conc 31.8 g/dL (31.6-35.5); Mean Corpuscular Hemoglobin 30.7 pg (28.0-33.3); Mean Corpuscular Volume 96.3 fL (83.0-100.0); Mean Platelet Volume 11.2 fL (9.4-12.4); Monocytes # 1.6 K/mcL (0.0-1.3); Monocytes % 10.2 %; Neutrophils # 10.4 K/mcL (1.6-8.9); Nucleated Red Blood Cells 0.1 /100 WBC (0); Platelet Count 215 K/mcL (140-400); Red Blood Count 5.12 M/mcL (4.19-5.50); Red Cell Distribution Width 13.1 % (11.5-14.5); Segmented Neutrophils % 66.5 %; White Blood Count 15.7 K/mcL (4.3-11.1)
[2020-07-03 04:50] LABS: INR 1.4; Prothrombin Time 16.4 Seconds (9.4-12.1)
[2020-07-03 04:53] LABS: Activated Partial Thrombo Time 25.5 Seconds (26.0-36.0)
[2020-07-03 05:09] LABS: Alanine Aminotransferase 47 Units/L (7-52); Albumin 2.6 g/dL (3.5-5.7); Albumin/Globulin Ratio 0.6 (1.1-2.2); Alkaline Phosphatase 53 Units/L (34-104); Aspartate Amino Transferase 36 Units/L (13-39); BUN/Creatinine Ratio 42 (6-26); Bilirubin,Total 0.8 mg/dL (0.3-1.0); Blood Urea Nitrogen 47 mg/dL (8-23); Calcium 8.7 mg/dL (8.6-10.3); Carbon Dioxide 31 mEq/L (23-29); Chloride 111 mEq/L (98-107); Globulin 4.5 g/dL (2.4-3.5); Glucose 124 mg/dL (70-105); Magnesium 2.1 mg/dL (1.6-2.6); Osmolality,Calculated 318 (280-300); Phosphorous 2.4 mg/dL (2.7-4.5); Potassium 4.2 mEq/L (3.5-5.1); Sodium 147 mEq/L (136-145); Total Protein 7.1 g/dL (6.4-8.9); eGFR For African Americans > 60 (> 60); eGFR For Non-African Americans > 60 (> 60)
[2020-07-03] MEDS: *HR* Enoxaparin 40 MG/0.4 ML SYRINGE SQ SCH ×2 (05:38→17:01)
[2020-07-03] MEDS: Doxycycline 100 MG in 0.9 % Sodium Chloride Mini Bag 100 ML IVPB SCH ×2 (05:38→17:00)
[2020-07-03] MEDS: Piperacillin/Tazobactam 3.375 GM in 0.9 % Sodium Chloride Mini Bag 100 ML IVPB SCH ×2 (07:27→15:27)
[2020-07-03] MEDS: Dexamethasone 4 MG/ML VIAL IVP SCH (07:28)
[2020-07-03] MEDS: Chlorhexidine Rinse 15 ML MOUTHWASH MM SCH ×2 (07:29→20:29)
[2020-07-03] MEDS: Pantoprazole 40 MG VIAL IVP SCH (07:29)
[2020-07-03] MEDS: Insulin DETEMIR 100 UNIT/ML X5UNITS SUBQ SCH ×2 (07:29→20:31)
[2020-07-03] MEDS: Nystatin POWDER 30 GM BOTTLE TP SCH ×2 (07:30→21:07)
[2020-07-03] MEDS: Neosporin OINT 15 GM TUBE TP SCH ×2 (07:30→20:32)
[2020-07-03 20:32] LABS: ABG Base Excess 4 mEq/L (-2 to 3); ABG HCO3 30 mEq/L (21-27); ABG Oxygen Saturation 92 % (95-98); ABG PCO2 48 mmHg (35-45); ABG PH 7.41 pH Units (7.32-7.45); ABG PO2 65 mmHg (85-104); ABG TCO2 32 mEq/L (20-26); Blood Gas VT 480 cc
[2020-07-04] MEDS: Artificial Tears SOLN 15 ML BOTTLE BOTH EYES SCH ×6 (00:17→20:51)
[2020-07-04] MEDS: Insulin LISPRO 300 UNITS/3 ML VIAL SUBQ SCH ×6 (00:18→20:52)
[2020-07-04] MEDS: Piperacillin/Tazobactam 3.375 GM in 0.9 % Sodium Chloride Mini Bag 100 ML IVPB SCH ×3 (00:18→16:06)
[2020-07-04] MEDS: Ipratropium 1 PUFF INHALER IH SCH ×6 (03:39→23:56)
[2020-07-04 04:05] LABS: Basophils % 0.2 %; Hematocrit 48.9 % (37.5-50.1); Hemoglobin 15.5 g/dL (12.9-16.9); Immature Granulocytes % 0.8 % (0-4); Lymphocytes # 3.5 K/mcL (0.6-4.6); Lymphocytes % 24.3 %; Mean Corpuscular HGB Conc 31.7 g/dL (31.6-35.5); Mean Corpuscular Hemoglobin 31.5 pg (28.0-33.3); Mean Corpuscular Volume 99.4 fL (83.0-100.0); Mean Platelet Volume 11.4 fL (9.4-12.4); Monocytes # 1.3 K/mcL (0.0-1.3); Neutrophils # 9.4 K/mcL (1.6-8.9); Platelet Count 198 K/mcL (140-400); Red Blood Count 4.92 M/mcL (4.19-5.50); Red Cell Distribution Width 13.3 % (11.5-14.5); Segmented Neutrophils % 65.7 %; White Blood Count 14.3 K/mcL (4.3-11.1)
[2020-07-04 04:12] LABS: VBG Ionized Calcium 1.05 mmol/L (1.15-1.35)
[2020-07-04 04:14] LABS: INR 1.5
[2020-07-04 04:16] LABS: Activated Partial Thrombo Time 26.9 Seconds (26.0-36.0)
[2020-07-04 04:25] LABS: Alanine Aminotransferase 54 Units/L (7-52); Albumin 2.4 g/dL (3.5-5.7); Albumin/Globulin Ratio 0.5 (1.1-2.2); Alkaline Phosphatase 47 Units/L (34-104); Aspartate Amino Transferase 37 Units/L (13-39); BUN/Creatinine Ratio 49 (6-26); Bilirubin,Total 0.9 mg/dL (0.3-1.0); Blood Urea Nitrogen 55 mg/dL (8-23); Calcium 8.6 mg/dL (8.6-10.3); Carbon Dioxide 30 mEq/L (23-29); Chloride 114 mEq/L (98-107); Globulin 4.8 g/dL (2.4-3.5); Glucose 272 mg/dL (70-105); Magnesium 2.5 mg/dL (1.6-2.6); Osmolality,Calculated 331 (280-300); Phosphorous 1.9 mg/dL (2.7-4.5); Potassium 4.2 mEq/L (3.5-5.1); Sodium 148 mEq/L (136-145); Total Protein 7.2 g/dL (6.4-8.9); eGFR For African Americans > 60 (> 60); eGFR For Non-African Americans > 60 (> 60)
[2020-07-04 04:26] LABS: ABG Base Excess 6 mEq/L (-2 to 3); ABG HCO3 31 mEq/L (21-27); ABG Oxygen Saturation 90 % (95-98); ABG PCO2 49 mmHg (35-45); ABG PH 7.42 pH Units (7.32-7.45); ABG PO2 59 mmHg (85-104); ABG TCO2 33 mEq/L (20-26); Blood Gas VT 480 cc
[2020-07-04] MEDS: FentaNYL (PF) 1,000 MCG/100 ML IV.SOLN IVC SCH ×3 (04:38→18:30)
[2020-07-04] MEDS: Doxycycline 100 MG in 0.9 % Sodium Chloride Mini Bag 100 ML IVPB SCH ×2 (05:30→17:40)
[2020-07-04] MEDS: *HR* Enoxaparin 40 MG/0.4 ML SYRINGE SQ SCH ×2 (05:31→17:39)
[2020-07-04] MEDS: Calcium Gluconate 1gm/50mL 1 GM/50 ML BAG IVPB SCH ×2 (05:52→06:41)
[2020-07-04] MEDS: Nystatin POWDER 30 GM BOTTLE TP SCH ×2 (08:34→20:54)
[2020-07-04] MEDS: Chlorhexidine Rinse 15 ML MOUTHWASH MM SCH ×2 (08:34→20:53)
[2020-07-04] MEDS: Neosporin OINT 15 GM TUBE TP SCH ×2 (08:34→20:53)
[2020-07-04] MEDS: Insulin DETEMIR 100 UNIT/ML X5UNITS SUBQ SCH ×2 (08:36→20:52)
[2020-07-04] MEDS: Dexamethasone 4 MG/ML VIAL IVP SCH (08:36)
[2020-07-04] MEDS: Pantoprazole 40 MG VIAL IVP SCH (08:37)
[2020-07-04] MEDS: Furosemide 40 MG/4 ML VIAL IVP SCH (08:47)
[2020-07-04] MEDS: Midazolam HCl 50 MG/100 ML IV.SOLN IVC SCH (09:13)
[2020-07-04] MEDS: Docusate Oral Soln 100 MG/10 ML UDC GTUBE SCH ×2 (11:42→20:53)
[2020-07-05] MEDS: Piperacillin/Tazobactam 3.375 GM in 0.9 % Sodium Chloride Mini Bag 100 ML IVPB SCH ×3 (00:13→15:34)
[2020-07-05] MEDS: Artificial Tears SOLN 15 ML BOTTLE BOTH EYES SCH ×7 (00:15→23:34)
[2020-07-05] MEDS: Insulin LISPRO 300 UNITS/3 ML VIAL SUBQ SCH ×7 (00:30→23:34)
[2020-07-05] MEDS: FentaNYL (PF) 2,500 MCG/50 ML IV.SOLN IVC SCH ×2 (01:15→11:12)
[2020-07-05] MEDS: Ipratropium 1 PUFF INHALER IH SCH ×6 (04:08→23:42)
[2020-07-05 04:15] LABS: ABG Base Excess 5 mEq/L (-2 to 3); ABG HCO3 33 mEq/L (21-27); ABG Oxygen Saturation 92 % (95-98); ABG PCO2 64 mmHg (35-45); ABG PH 7.32 pH Units (7.32-7.45); ABG PO2 70 mmHg (85-104); ABG TCO2 35 mEq/L (20-26); Blood Gas Modality ASSIST CONTROL; Blood Gas VT 480 cc
[2020-07-05 05:26] LABS: Hematocrit 49.9 % (37.5-50.1); Hemoglobin 15.5 g/dL (12.9-16.9); Mean Corpuscular HGB Conc 31.1 g/dL (31.6-35.5); Mean Corpuscular Hemoglobin 31.4 pg (28.0-33.3); Mean Platelet Volume 11.6 fL (9.4-12.4); Platelet Count 188 K/mcL (140-400); Red Blood Count 4.94 M/mcL (4.19-5.50); Red Cell Distribution Width 13.6 % (11.5-14.5); White Blood Count 14.7 K/mcL (4.3-11.1)
[2020-07-05 05:32] LABS: ABG Ionized Calcium 1.02 mmol/L (1.15-1.35)
[2020-07-05] MEDS: Doxycycline 100 MG in 0.9 % Sodium Chloride Mini Bag 100 ML IVPB SCH ×2 (05:43→17:49)
[2020-07-05 05:44] LABS: BUN/Creatinine Ratio 45 (6-26); Blood Urea Nitrogen 59 mg/dL (8-23); Calcium 8.7 mg/dL (8.6-10.3); Carbon Dioxide 29 mEq/L (23-29); Chloride 116 mEq/L (98-107); Glucose 270 mg/dL (70-105); Magnesium 2.4 mg/dL (1.6-2.6); Osmolality,Calculated 334 (280-300); Phosphorous 3.3 mg/dL (2.7-4.5); Potassium 4.6 mEq/L (3.5-5.1); Sodium 149 mEq/L (136-145); eGFR For African Americans > 60 (> 60); eGFR For Non-African Americans 54 (> 60)
[2020-07-05] MEDS: *HR* Enoxaparin 40 MG/0.4 ML SYRINGE SQ SCH ×2 (05:45→17:50)
[2020-07-05] MEDS: Cholecalciferol (D-3) 1,000 UNIT (25MCG) TABLET PO SCH (08:41)
[2020-07-05] MEDS: Chlorhexidine Rinse 15 ML MOUTHWASH MM SCH ×2 (08:41→20:37)
[2020-07-05] MEDS: Docusate Oral Soln 100 MG/10 ML UDC GTUBE SCH ×2 (08:41→20:37)
[2020-07-05] MEDS: Dexamethasone 4 MG/ML VIAL IVP SCH (08:42)
[2020-07-05] MEDS: Pantoprazole 40 MG VIAL IVP SCH (08:42)
[2020-07-05] MEDS: Furosemide 40 MG/4 ML VIAL IVP SCH (08:42)
[2020-07-05] MEDS: Nystatin POWDER 30 GM BOTTLE TP SCH ×2 (08:43→20:38)
[2020-07-05] MEDS: Neosporin OINT 15 GM TUBE TP SCH ×2 (08:44→20:39)
[2020-07-05] MEDS: Insulin DETEMIR 100 UNIT/ML X5UNITS SUBQ SCH ×2 (09:36→20:36)
[2020-07-05] MEDS: levoFLOXacin 750 MG/150 ML 750 MG/150 ML BAG IVPB SCH (20:38)
[2020-07-06] MEDS: FentaNYL (PF) 2,500 MCG/50 ML IV.SOLN IVC SCH ×2 (01:34→19:00)
[2020-07-06] MEDS: Artificial Tears SOLN 15 ML BOTTLE BOTH EYES SCH ×6 (03:13→23:16)
[2020-07-06] MEDS: Ipratropium 1 PUFF INHALER IH SCH ×6 (03:38→23:29)
[2020-07-06 03:55] LABS: ABG Base Excess 6 mEq/L (-2 to 3); ABG HCO3 34 mEq/L (21-27); ABG Oxygen Saturation 94 % (95-98); ABG PCO2 62 mmHg (35-45); ABG PH 7.34 pH Units (7.32-7.45); ABG PO2 79 mmHg (85-104); ABG TCO2 36 mEq/L (20-26); Blood Gas Modality ASSIST CONTROL; Blood Gas VT 480 cc
[2020-07-06 04:06] LABS: Basophils % 0.2 %; Eosinophils % 0.3 %; Hematocrit 48.3 % (37.5-50.1); Hemoglobin 14.8 g/dL (12.9-16.9); Immature Granulocytes % 0.6 % (0-4); Lymphocytes # 2.7 K/mcL (0.6-4.6); Lymphocytes % 21.5 %; Mean Corpuscular HGB Conc 30.6 g/dL (31.6-35.5); Mean Corpuscular Hemoglobin 31.3 pg (28.0-33.3); Mean Corpuscular Volume 102.1 fL (83.0-100.0); Mean Platelet Volume 11.4 fL (9.4-12.4); Monocytes # 1.2 K/mcL (0.0-1.3); Monocytes % 9.5 %; Neutrophils # 8.6 K/mcL (1.6-8.9); Platelet Count 156 K/mcL (140-400); Red Blood Count 4.73 M/mcL (4.19-5.50); Red Cell Distribution Width 13.3 % (11.5-14.5); Segmented Neutrophils % 67.9 %; White Blood Count 12.7 K/mcL (4.3-11.1)
[2020-07-06 04:19] LABS: INR 1.3; Prothrombin Time 14.5 Seconds (9.4-12.1)
[2020-07-06 04:21] LABS: BUN/Creatinine Ratio 55 (6-26); Blood Urea Nitrogen 58 mg/dL (8-23); Calcium 8.8 mg/dL (8.6-10.3); Carbon Dioxide 32 mEq/L (23-29); Chloride 115 mEq/L (98-107); Glucose 285 mg/dL (70-105); Magnesium 2.2 mg/dL (1.6-2.6); Osmolality,Calculated 337 (280-300); Phosphorous 2.6 mg/dL (2.7-4.5); Potassium 4.2 mEq/L (3.5-5.1); Sodium 150 mEq/L (136-145); eGFR For African Americans > 60 (> 60); eGFR For Non-African Americans > 60 (> 60)
[2020-07-06] MEDS: Insulin LISPRO 300 UNITS/3 ML VIAL SUBQ SCH ×6 (04:27→23:17)
[2020-07-06] MEDS: Cisatracurium 200 MG in 0.9 % Sodium Chloride 180 ML IVC SCH ×2 (05:19→20:56)
[2020-07-06] MEDS: Doxycycline 100 MG in 0.9 % Sodium Chloride Mini Bag 100 ML IVPB SCH (05:21)
[2020-07-06] MEDS: *HR* Enoxaparin 40 MG/0.4 ML SYRINGE SQ SCH ×2 (05:21→18:32)
[2020-07-06] MEDS: levoFLOXacin 750 MG/150 ML 750 MG/150 ML BAG IVPB SCH (08:13)
[2020-07-06] MEDS: Dexamethasone 4 MG/ML VIAL IVP SCH (08:40)
[2020-07-06] MEDS: Cholecalciferol (D-3) 1,000 UNIT (25MCG) TABLET PO SCH (08:40)
[2020-07-06] MEDS: Chlorhexidine Rinse 15 ML MOUTHWASH MM SCH ×2 (08:42→19:54)
[2020-07-06] MEDS: Nystatin POWDER 30 GM BOTTLE TP SCH ×2 (08:42→19:55)
[2020-07-06] MEDS: Pantoprazole 40 MG VIAL IVP SCH (08:42)
[2020-07-06] MEDS: Neosporin OINT 15 GM TUBE TP SCH ×2 (08:43→19:55)
[2020-07-06] MEDS: Insulin DETEMIR 100 UNIT/ML X5UNITS SUBQ SCH ×2 (08:49→19:54)
[2020-07-06] MEDS: Docusate Oral Soln 100 MG/10 ML UDC GTUBE SCH ×2 (12:02→19:54)
[2020-07-06] MEDS ORDERED: Potassium Phosphate 44 MEQ in 0.9 % Sodium Chloride 250 ML IVPB PRN (14:20)
[2020-07-07] MEDS: Ipratropium 1 PUFF INHALER IH SCH ×6 (03:44→23:30)
[2020-07-07] MEDS: Artificial Tears SOLN 15 ML BOTTLE BOTH EYES SCH ×6 (03:55→23:32)
[2020-07-07] MEDS: Insulin LISPRO 300 UNITS/3 ML VIAL SUBQ SCH ×5 (03:55→23:32)
[2020-07-07] MEDS: Midazolam HCl 50 MG/100 ML IV.SOLN IVC SCH (03:56)
[2020-07-07 04:04] LABS: Basophils % 0.1 %; Eosinophils % 0.7 %; Red Cell Distribution Width 13.4 % (11.5-14.5)
[2020-07-07 04:06] LABS: Eosinophils # 0.1 K/mcL (0.0-0.6); Hematocrit 49.1 % (37.5-50.1); Hemoglobin 14.5 g/dL (12.9-16.9); Immature Granulocytes % 0.7 % (0-4); Immature Platelets 8.2 % (1.1-6.1); Lymphocytes # 3.2 K/mcL (0.6-4.6); Lymphocytes % 25.3 %; Mean Corpuscular HGB Conc 29.5 g/dL (31.6-35.5); Mean Corpuscular Hemoglobin 30.2 pg (28.0-33.3); Mean Corpuscular Volume 102.3 fL (83.0-100.0); Mean Platelet Volume 11.9 fL (9.4-12.4); Monocytes # 1.1 K/mcL (0.0-1.3); Monocytes % 8.8 %; Neutrophils # 8.2 K/mcL (1.6-8.9); Platelet Count 137 K/mcL (140-400); Segmented Neutrophils % 64.4 %; White Blood Count 12.8 K/mcL (4.3-11.1)
[2020-07-07 04:18] LABS: Alanine Aminotransferase 45 Units/L (7-52); Albumin 2.4 g/dL (3.5-5.7); Albumin/Globulin Ratio 0.6 (1.1-2.2); Alkaline Phosphatase 44 Units/L (34-104); Aspartate Amino Transferase 24 Units/L (13-39); BUN/Creatinine Ratio 57 (6-26); Bilirubin,Total 0.5 mg/dL (0.3-1.0); Blood Urea Nitrogen 50 mg/dL (8-23); C-Reactive Protein 21 mg/L (Less than 10); Calcium 8.8 mg/dL (8.6-10.3); Carbon Dioxide 33 mEq/L (23-29); Chloride 115 mEq/L (98-107); Globulin 4.3 g/dL (2.4-3.5); Glucose 225 mg/dL (70-105); Lactate Dehydrogenase 210 Units/L (140-271); Osmolality,Calculated 332 (280-300); Potassium 4.3 mEq/L (3.5-5.1); Sodium 151 mEq/L (136-145); Total Protein 6.7 g/dL (6.4-8.9); eGFR For African Americans > 60 (> 60); eGFR For Non-African Americans > 60 (> 60)
[2020-07-07 04:30] LABS: INR 1.2; Prothrombin Time 14.3 Seconds (9.4-12.1)
[2020-07-07 04:39] LABS: ABG Base Excess 7 mEq/L (-2 to 3); ABG HCO3 35 mEq/L (21-27); ABG Oxygen Saturation 87 % (95-98); ABG PCO2 61 mmHg (35-45); ABG PH 7.37 pH Units (7.32-7.45); ABG PO2 57 mmHg (85-104); ABG TCO2 37 mEq/L (20-26); Blood Gas Modality ASSIST CONTROL; Blood Gas VT 480 cc
[2020-07-07] MEDS: *HR* Enoxaparin 40 MG/0.4 ML SYRINGE SQ SCH ×2 (06:11→18:02)
[2020-07-07] MEDS: Docusate Oral Soln 100 MG/10 ML UDC GTUBE SCH (08:27)
[2020-07-07] MEDS: Dexamethasone 4 MG/ML VIAL IVP SCH (08:33)
[2020-07-07] MEDS: Neosporin OINT 15 GM TUBE TP SCH ×2 (08:34→19:48)
[2020-07-07] MEDS: Cholecalciferol (D-3) 1,000 UNIT (25MCG) TABLET PO SCH (08:34)
[2020-07-07] MEDS: Chlorhexidine Rinse 15 ML MOUTHWASH MM SCH ×2 (08:34→19:47)
[2020-07-07] MEDS: Nystatin POWDER 30 GM BOTTLE TP SCH ×2 (08:35→19:48)
[2020-07-07] MEDS: levoFLOXacin 750 MG/150 ML 750 MG/150 ML BAG IVPB SCH (08:35)
[2020-07-07] MEDS: Insulin DETEMIR 100 UNIT/ML X5UNITS SUBQ SCH ×2 (08:35→19:47)
[2020-07-07] MEDS: Pantoprazole 40 MG VIAL IVP SCH (08:37)
[2020-07-07] MEDS ORDERED: Furosemide 40 MG/4 ML VIAL IVP SCH (09:00)
[2020-07-07] MEDS ORDERED: Insulin DETEMIR 100 UNIT/ML X5UNITS SUBQ ONE (09:36)
[2020-07-07] MEDS ORDERED: Docusate Oral Soln 100 MG/10 ML UDC GTUBE PRN (10:33)
[2020-07-08] MEDS: Ipratropium 1 PUFF INHALER IH SCH ×5 (03:59→19:49)
[2020-07-08 04:09] LABS: ABG Base Excess 6 mEq/L (-2 to 3); ABG HCO3 32 mEq/L (21-27); ABG Oxygen Saturation 92 % (95-98); ABG PCO2 51 mmHg (35-45); ABG PH 7.41 pH Units (7.32-7.45); ABG PO2 65 mmHg (85-104); ABG TCO2 33 mEq/L (20-26); Blood Gas VT 480 cc
[2020-07-08] MEDS: Artificial Tears SOLN 15 ML BOTTLE BOTH EYES SCH ×5 (04:18→19:56)
[2020-07-08] MEDS: Insulin LISPRO 300 UNITS/3 ML VIAL SUBQ SCH ×5 (04:18→19:57)
[2020-07-08 04:40] LABS: Basophils % 0.1 %; Eosinophils # 0.1 K/mcL (0.0-0.6); Eosinophils % 0.5 %; Hematocrit 49.5 % (37.5-50.1); Hemoglobin 15.4 g/dL (12.9-16.9); Immature Granulocytes % 0.7 % (0-4); Lymphocytes # 3.4 K/mcL (0.6-4.6); Lymphocytes % 22.3 %; Mean Corpuscular HGB Conc 31.1 g/dL (31.6-35.5); Mean Corpuscular Hemoglobin 31.1 pg (28.0-33.3); Mean Platelet Volume 12.4 fL (9.4-12.4); Monocytes # 1.3 K/mcL (0.0-1.3); Monocytes % 8.5 %; Neutrophils # 10.5 K/mcL (1.6-8.9); Platelet Count 138 K/mcL (140-400); Red Blood Count 4.95 M/mcL (4.19-5.50); Red Cell Distribution Width 13.3 % (11.5-14.5); Segmented Neutrophils % 67.9 %; White Blood Count 15.4 K/mcL (4.3-11.1)
[2020-07-08 04:58] LABS: BUN/Creatinine Ratio 60 (6-26); Blood Urea Nitrogen 45 mg/dL (8-23); Calcium 8.8 mg/dL (8.6-10.3); Carbon Dioxide 32 mEq/L (23-29); Chloride 114 mEq/L (98-107); Glucose 302 mg/dL (70-105); Magnesium 2.2 mg/dL (1.6-2.6); Osmolality,Calculated 331 (280-300); Phosphorous 1.7 mg/dL (2.7-4.5); Potassium 4.3 mEq/L (3.5-5.1); Sodium 149 mEq/L (136-145); eGFR For African Americans > 60 (> 60); eGFR For Non-African Americans > 60 (> 60)
[2020-07-08] MEDS: Cisatracurium 200 MG in 0.9 % Sodium Chloride 180 ML IVC SCH (05:16)
[2020-07-08] MEDS: Midazolam HCl 50 MG/100 ML IV.SOLN IVC SCH (05:17)
[2020-07-08] MEDS: *HR* Enoxaparin 40 MG/0.4 ML SYRINGE SQ SCH ×2 (05:38→19:55)
[2020-07-08] MEDS: *HR* Metoprolol 5 MG/5 ML VIAL IVP PRN (05:38)
[2020-07-08] MEDS: Dexamethasone 4 MG/ML VIAL IVP SCH (08:14)
[2020-07-08] MEDS: Chlorhexidine Rinse 15 ML MOUTHWASH MM SCH ×2 (08:15→19:55)
[2020-07-08] MEDS: Pantoprazole 40 MG VIAL IVP SCH (08:15)
[2020-07-08] MEDS: Cholecalciferol (D-3) 1,000 UNIT (25MCG) TABLET PO SCH (08:15)
[2020-07-08] MEDS: Neosporin OINT 15 GM TUBE TP SCH ×2 (08:15→19:57)
[2020-07-08] MEDS: Nystatin POWDER 30 GM BOTTLE TP SCH ×2 (08:16→19:57)
[2020-07-08] MEDS: levoFLOXacin 750 MG/150 ML 750 MG/150 ML BAG IVPB SCH (08:17)
[2020-07-08] MEDS: Insulin DETEMIR 100 UNIT/ML X5UNITS SUBQ SCH ×2 (08:20→19:57)
[2020-07-08] MEDS ORDERED: Furosemide 40 MG/4 ML VIAL IVP SCH ×2 (09:00→12:00)
[2020-07-08] MEDS: FentaNYL (PF) 2,500 MCG/50 ML IV.SOLN IVC SCH (22:50)
[2020-07-09] MEDS: Ipratropium 1 PUFF INHALER IH SCH ×7 (00:12→23:02)
[2020-07-09] MEDS: Insulin LISPRO 300 UNITS/3 ML VIAL SUBQ SCH ×6 (00:20→21:36)
[2020-07-09] MEDS: Artificial Tears SOLN 15 ML BOTTLE BOTH EYES SCH ×6 (00:20→19:53)
[2020-07-09] MEDS: *HR* Metoprolol 5 MG/5 ML VIAL IVP PRN ×3 (00:45→21:05)
[2020-07-09 04:40] LABS: Basophils % 0.1 %; Eosinophils % 0.1 %; Hematocrit 50.6 % (37.5-50.1); Hemoglobin 16.2 g/dL (12.9-16.9); Immature Granulocytes % 0.6 % (0-4); Lymphocytes # 4.5 K/mcL (0.6-4.6); Lymphocytes % 20.6 %; Mean Corpuscular Volume 96.7 fL (83.0-100.0); Mean Platelet Volume 12.4 fL (9.4-12.4); Monocytes # 1.8 K/mcL (0.0-1.3); Monocytes % 8.1 %; Neutrophils # 15.4 K/mcL (1.6-8.9); Platelet Count 130 K/mcL (140-400); Red Blood Count 5.23 M/mcL (4.19-5.50); Red Cell Distribution Width 13.4 % (11.5-14.5); Segmented Neutrophils % 70.5 %; White Blood Count 21.9 K/mcL (4.3-11.1)
[2020-07-09] MEDS ORDERED: 0.9 % Sodium Chloride 1,000 ML ONE (04:46)
[2020-07-09 04:59] LABS: C-Reactive Protein 33 mg/L (Less than 10); Lactate Dehydrogenase 317 Units/L (140-271)
[2020-07-09 05:00] LABS: BUN/Creatinine Ratio 56 (6-26); Blood Urea Nitrogen 49 mg/dL (8-23); Calcium 8.7 mg/dL (8.6-10.3); Carbon Dioxide 29 mEq/L (23-29); Chloride 112 mEq/L (98-107); Glucose 354 mg/dL (70-105); Magnesium 2.6 mg/dL (1.6-2.6); Osmolality,Calculated 331 (280-300); Phosphorous 2.9 mg/dL (2.7-4.5); Potassium 4.8 mEq/L (3.5-5.1); Sodium 147 mEq/L (136-145); eGFR For African Americans > 60 (> 60); eGFR For Non-African Americans > 60 (> 60)
[2020-07-09 05:02] LABS: ABG Base Excess 4 mEq/L (-2 to 3); ABG HCO3 31 mEq/L (21-27); ABG Oxygen Saturation 98 % (95-98); ABG PCO2 50 mmHg (35-45); ABG PO2 100 mmHg (85-104); ABG TCO2 32 mEq/L (20-26); Blood Gas Modality ASSIST CONTROL; Blood Gas VT 480 cc
[2020-07-09] MEDS: *HR* Enoxaparin 40 MG/0.4 ML SYRINGE SQ SCH ×2 (06:09→16:46)
[2020-07-09] MEDS: Midazolam HCl 50 MG/100 ML IV.SOLN IVC SCH (07:10)
[2020-07-09] MEDS: Cholecalciferol (D-3) 1,000 UNIT (25MCG) TABLET PO SCH (07:36)
[2020-07-09] MEDS: Furosemide 40 MG/4 ML VIAL IVP SCH (07:37)
[2020-07-09] MEDS: Dexamethasone 4 MG/ML VIAL IVP SCH (07:37)
[2020-07-09] MEDS: Chlorhexidine Rinse 15 ML MOUTHWASH MM SCH ×2 (07:38→20:58)
[2020-07-09] MEDS: Pantoprazole 40 MG VIAL IVP SCH (07:39)
[2020-07-09] MEDS: Insulin DETEMIR 100 UNIT/ML X5UNITS SUBQ SCH ×2 (07:40→20:58)
[2020-07-09] MEDS ORDERED: Vancomycin 2,000 MG/520 ML IV.SOLN IVPB ONE ×2 (07:42→20:00)
[2020-07-09] MEDS: Neosporin OINT 15 GM TUBE TP SCH ×2 (08:00→19:53)
[2020-07-09] MEDS: Nystatin POWDER 30 GM BOTTLE TP SCH ×2 (08:00→19:53)
[2020-07-09] MEDS: FentaNYL (PF) 2,500 MCG/50 ML IV.SOLN IVC SCH (08:39)
[2020-07-09] MEDS: Piperacillin/Tazobactam 3.375 GM in 0.9 % Sodium Chloride Mini Bag 100 ML IVPB SCH ×2 (08:58→16:45)
[2020-07-09 10:02] LABS: Bacteria,Urine Few per hpf (None-Few); Bilirubin,Urine Negative (Negative); Blood,Urine Large (Negative); Clarity,Urine Turbid (Clear); Color,Urine Light-Yellow (Yellow); Glucose,Urine (UA) Normal (Normal); Ketones,Urine Negative (Negative); Leukocyte Esterase,Urine Trace (Negative); Mucus,Urine Few per lpf (None-Few); Nitrite,Urine Negative (Negative); Protein,Urine Negative (Neg-Trace); RBC,Urine TNTC per hpf (0-3); Specific Gravity,Urine 1.013 (1.010-1.025); Squamous Epithelial Cell,Urine Few per hpf (None-Few); Urobilinogen,Urine Normal (Normal)
[2020-07-10] MEDS: Artificial Tears SOLN 15 ML BOTTLE BOTH EYES SCH ×6 (00:21→20:47)
[2020-07-10] MEDS: Piperacillin/Tazobactam 3.375 GM in 0.9 % Sodium Chloride Mini Bag 100 ML IVPB SCH ×3 (00:24→16:46)
[2020-07-10] MEDS: Insulin LISPRO 300 UNITS/3 ML VIAL SUBQ SCH ×6 (00:53→20:46)
[2020-07-10] MEDS ORDERED: 0.9 % Sodium Chloride 1,000 ML ONE (02:39)
[2020-07-10] MEDS: Ipratropium 1 PUFF INHALER IH SCH ×6 (03:33→23:35)
[2020-07-10] MEDS: FentaNYL (PF) 2,500 MCG/50 ML IV.SOLN IVC SCH (04:43)
[2020-07-10] MEDS: Midazolam HCl 50 MG/100 ML IV.SOLN IVC SCH (04:45)
[2020-07-10] MEDS: *HR* Enoxaparin 40 MG/0.4 ML SYRINGE SQ SCH ×2 (04:45→16:45)
[2020-07-10 05:08] LABS: ABG Base Excess 5 mEq/L (-2 to 3); ABG HCO3 33 mEq/L (21-27); ABG Oxygen Saturation 97 % (95-98); ABG PCO2 60 mmHg (35-45); ABG PH 7.34 pH Units (7.32-7.45); ABG PO2 104 mmHg (85-104); ABG TCO2 35 mEq/L (20-26); Blood Gas Modality AF; Blood Gas VT 480 cc
[2020-07-10] MEDS: *HR* Metoprolol 5 MG/5 ML VIAL IVP PRN (05:44)
[2020-07-10] MEDS: Norepinephrine 4 MG/254 ML IV.SOLN IVC SCH (06:01)
[2020-07-10 06:10] LABS: BUN/Creatinine Ratio 62 (6-26); Blood Urea Nitrogen 81 mg/dL (8-23); Calcium 8.7 mg/dL (8.6-10.3); Carbon Dioxide 30 mEq/L (23-29); Chloride 113 mEq/L (98-107); Glucose 239 mg/dL (70-105); Magnesium 2.5 mg/dL (1.6-2.6); Osmolality,Calculated 344 (280-300); Phosphorous 4.3 mg/dL (2.7-4.5); Potassium 4.6 mEq/L (3.5-5.1); Sodium 151 mEq/L (136-145); eGFR For African Americans > 60 (> 60); eGFR For Non-African Americans 54 (> 60)
[2020-07-10 06:22] LABS: Basophils % 0.1 %; Eosinophils % 0.1 %; Hematocrit 50.2 % (37.5-50.1); Immature Granulocytes % 0.7 % (0-4); Lymphocytes % 22.2 %; Mean Corpuscular HGB Conc 30.7 g/dL (31.6-35.5); Mean Corpuscular Hemoglobin 30.1 pg (28.0-33.3); Mean Platelet Volume 12.6 fL (9.4-12.4); Monocytes # 1.8 K/mcL (0.0-1.3); Monocytes % 7.9 %; Platelet Count 103 K/mcL (140-400); Red Blood Count 5.11 M/mcL (4.19-5.50); Red Cell Distribution Width 13.4 % (11.5-14.5)
[2020-07-10 06:25] LABS: Hemoglobin 15.4 g/dL (12.9-16.9); Mean Corpuscular Volume 98.2 fL (83.0-100.0); Neutrophils # 15.5 K/mcL (1.6-8.9); White Blood Count 22.4 K/mcL (4.3-11.1)
[2020-07-10 06:53] LABS: INR 1.4; Prothrombin Time 15.8 Seconds (9.4-12.1)
[2020-07-10 07:05] LABS: Alanine Aminotransferase 23 Units/L (7-52); Albumin < 1.5 g/dL (3.5-5.7); Alkaline Phosphatase 22 Units/L (34-104); Aspartate Amino Transferase 16 Units/L (13-39); Bilirubin,Direct 0.2 mg/dL (0.0-0.2); Bilirubin,Indirect 0.2 mg/dL (0.0-1.0); Bilirubin,Total 0.4 mg/dL (0.3-1.0); Lactate Dehydrogenase 155 Units/L (140-271); Total Protein 3.2 g/dL (6.4-8.9)
[2020-07-10] MEDS: Chlorhexidine Rinse 15 ML MOUTHWASH MM SCH ×2 (08:13→20:43)
[2020-07-10] MEDS: Cholecalciferol (D-3) 1,000 UNIT (25MCG) TABLET PO SCH (08:13)
[2020-07-10] MEDS: Pantoprazole 40 MG VIAL IVP SCH (08:13)
[2020-07-10] MEDS: Vancomycin 1,500 MG/265 ML IV.SOLN IVPB SCH ×2 (08:14→22:13)
[2020-07-10] MEDS: Dexamethasone 4 MG/ML VIAL IVP SCH (08:14)
[2020-07-10] MEDS: Insulin DETEMIR 100 UNIT/ML X5UNITS SUBQ SCH ×2 (08:14→20:49)
[2020-07-10] MEDS: Neosporin OINT 15 GM TUBE TP SCH ×2 (08:24→22:05)
[2020-07-10] MEDS: Nystatin POWDER 30 GM BOTTLE TP SCH ×2 (08:24→22:05)
[2020-07-10 10:23] LABS: C-Reactive Protein 9 mg/L (Less than 10)
[2020-07-10 17:10] LABS: Creatinine,Urine 82 mg/dL; Sodium, Urine 27.2 mEq/L
[2020-07-11] MEDS: Piperacillin/Tazobactam 3.375 GM in 0.9 % Sodium Chloride Mini Bag 100 ML IVPB SCH ×3 (00:50→17:43)
[2020-07-11] MEDS: Insulin LISPRO 300 UNITS/3 ML VIAL SUBQ SCH ×6 (00:50→22:09)
[2020-07-11] MEDS: Artificial Tears SOLN 15 ML BOTTLE BOTH EYES SCH ×6 (00:51→20:14)
[2020-07-11] MEDS: FentaNYL (PF) 2,500 MCG/50 ML IV.SOLN IVC SCH ×2 (02:56→21:55)
[2020-07-11] MEDS: Ipratropium 1 PUFF INHALER IH SCH ×6 (03:51→23:53)
[2020-07-11 04:57] LABS: Eosinophils % 0.4 %; Hematocrit 48.3 % (37.5-50.1); Hemoglobin 14.7 g/dL (12.9-16.9); Immature Granulocytes % 0.5 % (0-4); Immature Platelets 12.3 % (1.1-6.1); Lymphocytes % 23.4 %; Mean Corpuscular HGB Conc 30.4 g/dL (31.6-35.5); Mean Corpuscular Hemoglobin 30.1 pg (28.0-33.3); Mean Platelet Volume 12.8 fL (9.4-12.4); Monocytes % 7.1 %; Red Blood Count 4.88 M/mcL (4.19-5.50); Red Cell Distribution Width 13.3 % (11.5-14.5); Segmented Neutrophils % 68.6 %
[2020-07-11 04:58] LABS: Eosinophils # 0.1 K/mcL (0.0-0.6); Lymphocytes # 4.7 K/mcL (0.6-4.6); Monocytes # 1.4 K/mcL (0.0-1.3); Neutrophils # 13.7 K/mcL (1.6-8.9)
[2020-07-11 05:04] LABS: ABG Base Excess 6 mEq/L (-2 to 3); ABG HCO3 34 mEq/L (21-27); ABG Oxygen Saturation 94 % (95-98); ABG PCO2 61 mmHg (35-45); ABG PH 7.35 pH Units (7.32-7.45); ABG PO2 78 mmHg (85-104); ABG TCO2 35 mEq/L (20-26); Blood Gas Modality ASSIST CONTROL; Blood Gas VT 480 cc
[2020-07-11 05:18] LABS: BUN/Creatinine Ratio 67 (6-26); Blood Urea Nitrogen 65 mg/dL (8-23); Calcium 7.7 mg/dL (8.6-10.3); Carbon Dioxide 28 mEq/L (23-29); Chloride 118 mEq/L (98-107); Glucose 242 mg/dL (70-105); Magnesium 2.4 mg/dL (1.6-2.6); Osmolality,Calculated 339 (280-300); Phosphorous 2.4 mg/dL (2.7-4.5); Potassium 3.8 mEq/L (3.5-5.1); Sodium 151 mEq/L (136-145); eGFR For African Americans > 60 (> 60); eGFR For Non-African Americans > 60 (> 60)
[2020-07-11 05:19] LABS: Platelet Count 85 K/mcL (140-400); Platelet Estimate Decreased (Normal)
[2020-07-11] MEDS ORDERED: Potassium Phosphate 44 MEQ in 0.9 % Sodium Chloride 250 ML IVPB ONE (05:43)
[2020-07-11] MEDS: *HR* Enoxaparin 40 MG/0.4 ML SYRINGE SQ SCH ×2 (06:20→17:46)
[2020-07-11] MEDS: Norepinephrine 4 MG/254 ML IV.SOLN IVC SCH (06:20)
[2020-07-11] MEDS: Midazolam HCl 50 MG/100 ML IV.SOLN IVC SCH (06:20)
[2020-07-11] MEDS: Pantoprazole 40 MG VIAL IVP SCH (08:47)
[2020-07-11] MEDS: Chlorhexidine Rinse 15 ML MOUTHWASH MM SCH ×2 (08:47→20:14)
[2020-07-11] MEDS: Dexamethasone 4 MG/ML VIAL IVP SCH (08:48)
[2020-07-11] MEDS: Furosemide 40 MG/4 ML VIAL IVP SCH (08:50)
[2020-07-11] MEDS: Insulin DETEMIR 100 UNIT/ML X5UNITS SUBQ SCH ×2 (08:51→20:16)
[2020-07-11] MEDS: Nystatin POWDER 30 GM BOTTLE TP SCH ×2 (08:51→20:14)
[2020-07-11] MEDS: Cholecalciferol (D-3) 1,000 UNIT (25MCG) TABLET PO SCH (08:52)
[2020-07-11] MEDS: Neosporin OINT 15 GM TUBE TP SCH ×2 (08:52→20:14)
[2020-07-11] MEDS: Vancomycin 1,500 MG/265 ML IV.SOLN IVPB SCH ×2 (09:44→20:16)
[2020-07-11 12:40] LABS: Lipase 95 Units/L (11-82); Triglycerides 269 mg/dL (< 150)
[2020-07-11] MEDS ORDERED: Isovue-370 500 ML BOTTLE IVP ONE (15:53)
[2020-07-12] MEDS: Artificial Tears SOLN 15 ML BOTTLE BOTH EYES SCH ×7 (00:17→23:12)
[2020-07-12] MEDS: Piperacillin/Tazobactam 3.375 GM in 0.9 % Sodium Chloride Mini Bag 100 ML IVPB SCH ×4 (00:17→23:12)
[2020-07-12] MEDS: Insulin LISPRO 300 UNITS/3 ML VIAL SUBQ SCH ×7 (00:18→23:54)
[2020-07-12] MEDS: Ipratropium 1 PUFF INHALER IH SCH ×6 (03:55→23:26)
[2020-07-12 04:06] LABS: ABG Base Excess 6 mEq/L (-2 to 3); ABG HCO3 35 mEq/L (21-27); ABG Oxygen Saturation 95 % (95-98); ABG PCO2 66 mmHg (35-45); ABG PH 7.33 pH Units (7.32-7.45); ABG PO2 81 mmHg (85-104); ABG TCO2 37 mEq/L (20-26); Blood Gas Modality ASSIST CONTROL; Blood Gas VT 480 cc
[2020-07-12 05:28] LABS: Basophils % 0.1 %; Eosinophils % 0.9 %
[2020-07-12 05:30] LABS: Eosinophils # 0.2 K/mcL (0.0-0.6); Hematocrit 44.8 % (37.5-50.1); Hemoglobin 13.4 g/dL (12.9-16.9); Immature Granulocytes % 0.4 % (0-4); Immature Platelets 15.1 % (1.1-6.1); Lymphocytes # 3.6 K/mcL (0.6-4.6); Lymphocytes % 22.2 %; Mean Corpuscular HGB Conc 29.9 g/dL (31.6-35.5); Mean Corpuscular Hemoglobin 30.5 pg (28.0-33.3); Mean Corpuscular Volume 101.8 fL (83.0-100.0); Mean Platelet Volume 12.9 fL (9.4-12.4); Monocytes # 0.9 K/mcL (0.0-1.3); Monocytes % 5.3 %; Neutrophils # 11.6 K/mcL (1.6-8.9); Red Cell Distribution Width 13.3 % (11.5-14.5); Segmented Neutrophils % 71.1 %; White Blood Count 16.3 K/mcL (4.3-11.1)
[2020-07-12 05:36] LABS: Platelet Count 74 K/mcL (140-400)
[2020-07-12] MEDS: *HR* Enoxaparin 40 MG/0.4 ML SYRINGE SQ SCH ×2 (05:49→17:10)
[2020-07-12] MEDS: Midazolam HCl 50 MG/100 ML IV.SOLN IVC SCH (05:50)
[2020-07-12] MEDS: Norepinephrine 4 MG/254 ML IV.SOLN IVC SCH (05:50)
[2020-07-12 06:00] LABS: BUN/Creatinine Ratio 70 (6-26); Blood Urea Nitrogen 64 mg/dL (8-23); Calcium 8.2 mg/dL (8.6-10.3); Carbon Dioxide 30 mEq/L (23-29); Chloride 112 mEq/L (98-107); Glucose 334 mg/dL (70-105); Magnesium 2.8 mg/dL (1.6-2.6); Osmolality,Calculated 339 (280-300); Phosphorous 2.7 mg/dL (2.7-4.5); Potassium 3.9 mEq/L (3.5-5.1); Sodium 149 mEq/L (136-145); eGFR For African Americans > 60 (> 60); eGFR For Non-African Americans > 60 (> 60)
[2020-07-12] MEDS: Chlorhexidine Rinse 15 ML MOUTHWASH MM SCH ×2 (07:59→21:06)
[2020-07-12] MEDS: Neosporin OINT 15 GM TUBE TP SCH ×2 (08:00→21:06)
[2020-07-12] MEDS: Pantoprazole 40 MG VIAL IVP SCH (08:00)
[2020-07-12] MEDS: Nystatin POWDER 30 GM BOTTLE TP SCH ×2 (08:00→21:06)
[2020-07-12] MEDS: Cholecalciferol (D-3) 1,000 UNIT (25MCG) TABLET PO SCH (08:00)
[2020-07-12] MEDS: Furosemide 40 MG/4 ML VIAL IVP SCH ×2 (08:01→21:08)
[2020-07-12] MEDS: Dexamethasone 4 MG/ML VIAL IVP SCH (08:02)
[2020-07-12] MEDS: Insulin DETEMIR 100 UNIT/ML X5UNITS SUBQ SCH ×2 (08:05→21:06)
[2020-07-12] MEDS: Vancomycin 1,500 MG/265 ML IV.SOLN IVPB SCH (09:43)
[2020-07-12] MEDS ORDERED: Insulin DETEMIR 100 UNIT/ML X5UNITS SUBQ ONE (12:00)
[2020-07-12] MEDS: FentaNYL (PF) 2,500 MCG/50 ML IV.SOLN IVC SCH (16:49)
[2020-07-13] MEDS: Ipratropium 1 PUFF INHALER IH SCH ×6 (03:38→23:48)
[2020-07-13 04:09] LABS: ABG Base Excess 8 mEq/L (-2 to 3); ABG HCO3 37 mEq/L (21-27); ABG Oxygen Saturation 89 % (95-98); ABG PCO2 66 mmHg (35-45); ABG PH 7.35 pH Units (7.32-7.45); ABG PO2 62 mmHg (85-104); ABG TCO2 39 mEq/L (20-26); Blood Gas Modality ASSIST CONTROL; Blood Gas VT 480 cc
[2020-07-13 04:17] LABS: Basophils % 0.1 %; Red Blood Count 4.59 M/mcL (4.19-5.50); Red Cell Distribution Width 13.2 % (11.5-14.5)
[2020-07-13 04:19] LABS: Eosinophils # 0.2 K/mcL (0.0-0.6); Hematocrit 45.4 % (37.5-50.1); Hemoglobin 13.6 g/dL (12.9-16.9); Immature Granulocytes % 0.6 % (0-4); Immature Platelets 15.3 % (1.1-6.1); Lymphocytes # 2.8 K/mcL (0.6-4.6); Lymphocytes % 16.1 %; Mean Corpuscular Hemoglobin 29.6 pg (28.0-33.3); Mean Corpuscular Volume 98.9 fL (83.0-100.0); Mean Platelet Volume 12.9 fL (9.4-12.4); Monocytes % 5.5 %; Neutrophils # 13.2 K/mcL (1.6-8.9); Platelet Count 79 K/mcL (140-400); Segmented Neutrophils % 76.7 %; White Blood Count 17.2 K/mcL (4.3-11.1)
[2020-07-13] MEDS: Insulin LISPRO 300 UNITS/3 ML VIAL SUBQ SCH ×5 (04:20→21:02)
[2020-07-13] MEDS: Artificial Tears SOLN 15 ML BOTTLE BOTH EYES SCH ×5 (04:20→20:30)
[2020-07-13 04:25] LABS: INR 1.2
[2020-07-13 04:38] LABS: BUN/Creatinine Ratio 64 (6-26); Blood Urea Nitrogen 57 mg/dL (8-23); Calcium 8.4 mg/dL (8.6-10.3); Carbon Dioxide 35 mEq/L (23-29); Chloride 109 mEq/L (98-107); Glucose 308 mg/dL (70-105); Magnesium 2.3 mg/dL (1.6-2.6); Osmolality,Calculated 335 (280-300); Phosphorous 2.4 mg/dL (2.7-4.5); Potassium 3.6 mEq/L (3.5-5.1); Sodium 149 mEq/L (136-145); eGFR For African Americans > 60 (> 60); eGFR For Non-African Americans > 60 (> 60)
[2020-07-13] MEDS: *HR* Enoxaparin 40 MG/0.4 ML SYRINGE SQ SCH ×2 (05:55→17:06)
[2020-07-13] MEDS: Norepinephrine 4 MG/254 ML IV.SOLN IVC SCH ×2 (05:55→10:46)
[2020-07-13] MEDS: Midazolam HCl 50 MG/100 ML IV.SOLN IVC SCH (05:55)
[2020-07-13] MEDS: Pantoprazole 40 MG VIAL IVP SCH (08:00)
[2020-07-13] MEDS: Cholecalciferol (D-3) 1,000 UNIT (25MCG) TABLET PO SCH (08:01)
[2020-07-13] MEDS: Dexamethasone 4 MG/ML VIAL IVP SCH (08:01)
[2020-07-13] MEDS: Chlorhexidine Rinse 15 ML MOUTHWASH MM SCH ×2 (08:01→20:30)
[2020-07-13] MEDS: Furosemide 40 MG/4 ML VIAL IVP SCH ×2 (08:01→20:30)
[2020-07-13] MEDS: Insulin DETEMIR 100 UNIT/ML X5UNITS SUBQ SCH ×2 (08:05→21:02)
[2020-07-13] MEDS: Piperacillin/Tazobactam 3.375 GM in 0.9 % Sodium Chloride Mini Bag 100 ML IVPB SCH ×2 (08:10→15:06)
[2020-07-13] MEDS: Neosporin OINT 15 GM TUBE TP SCH ×2 (08:13→20:31)
[2020-07-13] MEDS: Nystatin POWDER 30 GM BOTTLE TP SCH ×2 (08:13→20:31)
[2020-07-13] MEDS ORDERED: *HR* Metoprolol 5 MG/5 ML VIAL IVP PRN (10:41)
[2020-07-13] MEDS ORDERED: Calcium Gluconate 1gm/50mL 1 GM/50 ML BAG IVPB PRN (11:42)
[2020-07-13 12:04] LABS: Appearance of Body Fluid Cloudy (Clear); Volume of Body Fluid 7 mL
[2020-07-13 13:26] LABS: Albumin 2.6 g/dL (3.5-5.7); Albumin/Globulin Ratio 0.7 (1.1-2.2); Bilirubin,Direct 0.8 mg/dL (0.0-0.2); Bilirubin,Indirect 0.6 mg/dL (0.0-1.0); Bilirubin,Total 1.4 mg/dL (0.3-1.0); Globulin 3.6 g/dL (2.4-3.5); Total Protein 6.2 g/dL (6.4-8.9)
[2020-07-13] MEDS: Potassium Phosphate 44 MEQ in 0.9 % Sodium Chloride 250 ML IVPB PRN (13:49)
[2020-07-13] MEDS ORDERED: *HR* Etomidate 20 MG/10 ML AMPUL IVP ONE (13:50)
[2020-07-13] MEDS: FentaNYL (PF) 2,500 MCG/50 ML IV.SOLN IVC SCH (14:51)
[2020-07-13] MEDS: Docusate Oral Soln 100 MG/10 ML UDC GTUBE SCH (20:30)
[2020-07-14] MEDS: Insulin LISPRO 300 UNITS/3 ML VIAL SUBQ SCH ×7 (00:41→23:36)
[2020-07-14] MEDS: Artificial Tears SOLN 15 ML BOTTLE BOTH EYES SCH ×7 (00:41→23:25)
[2020-07-14] MEDS: Norepinephrine 4 MG/254 ML IV.SOLN IVC SCH (02:57)
[2020-07-14 04:01] LABS: Basophils % 0.1 %; Eosinophils # 0.3 K/mcL (0.0-0.6); Eosinophils % 1.3 %; Hematocrit 43.5 % (37.5-50.1); Hemoglobin 13.3 g/dL (12.9-16.9); Immature Granulocytes % 1.3 % (0-4); Immature Platelets 13.1 % (1.1-6.1); Lymphocytes # 3.5 K/mcL (0.6-4.6); Lymphocytes % 18.1 %; Mean Corpuscular HGB Conc 30.6 g/dL (31.6-35.5); Mean Corpuscular Hemoglobin 30.4 pg (28.0-33.3); Mean Corpuscular Volume 99.5 fL (83.0-100.0); Mean Platelet Volume 13.6 fL (9.4-12.4); Monocytes # 0.9 K/mcL (0.0-1.3); Monocytes % 4.4 %; Neutrophils # 14.5 K/mcL (1.6-8.9); Red Blood Count 4.37 M/mcL (4.19-5.50); Red Cell Distribution Width 13.2 % (11.5-14.5); Segmented Neutrophils % 74.8 %; White Blood Count 19.4 K/mcL (4.3-11.1)
[2020-07-14 04:03] LABS: Platelet Count 96 K/mcL (140-400)
[2020-07-14 04:04] LABS: INR 1.4; Prothrombin Time 16.4 Seconds (9.4-12.1)
[2020-07-14 04:18] LABS: BUN/Creatinine Ratio 57 (6-26); Blood Urea Nitrogen 47 mg/dL (8-23); Calcium 8.6 mg/dL (8.6-10.3); Carbon Dioxide 35 mEq/L (23-29); Chloride 108 mEq/L (98-107); Glucose 220 mg/dL (70-105); Magnesium 2.4 mg/dL (1.6-2.6); Osmolality,Calculated 325 (280-300); Phosphorous 2.1 mg/dL (2.7-4.5); Potassium 3.7 mEq/L (3.5-5.1); Sodium 148 mEq/L (136-145); eGFR For African Americans > 60 (> 60); eGFR For Non-African Americans > 60 (> 60)
[2020-07-14] MEDS: Ipratropium 1 PUFF INHALER IH SCH ×6 (04:20→23:26)
[2020-07-14 04:27] LABS: ABG Base Excess 9 mEq/L (-2 to 3); ABG HCO3 36 mEq/L (21-27); ABG Oxygen Saturation 94 % (95-98); ABG PCO2 57 mmHg (35-45); ABG PH 7.41 pH Units (7.32-7.45); ABG PO2 73 mmHg (85-104); ABG TCO2 38 mEq/L (20-26); Blood Gas Modality ASSIST CONTROL; Blood Gas VT 480 cc
[2020-07-14 04:37] LABS: Anisocytosis 1+ (Not Present); Macrocytosis Present (Not Present); Platelet Estimate Slight Decrease (Normal)
[2020-07-14] MEDS: Potassium Phosphate 44 MEQ in 0.9 % Sodium Chloride 250 ML IVPB PRN (05:12)
[2020-07-14] MEDS: *HR* Enoxaparin 40 MG/0.4 ML SYRINGE SQ SCH ×2 (05:12→17:25)
[2020-07-14 05:53] LABS: Alanine Aminotransferase 55 Units/L (7-52); Albumin 2.5 g/dL (3.5-5.7); Albumin/Globulin Ratio 0.7 (1.1-2.2); Alkaline Phosphatase 67 Units/L (34-104); Aspartate Amino Transferase 43 Units/L (13-39); Bilirubin,Indirect 0.3 mg/dL (0.0-1.0); Bilirubin,Total 1.3 mg/dL (0.3-1.0); Globulin 3.7 g/dL (2.4-3.5); Total Protein 6.2 g/dL (6.4-8.9)
[2020-07-14] MEDS: Dexamethasone 4 MG/ML VIAL IVP SCH (07:17)
[2020-07-14] MEDS: Pantoprazole 40 MG VIAL IVP SCH (07:18)
[2020-07-14] MEDS: Cholecalciferol (D-3) 1,000 UNIT (25MCG) TABLET PO SCH (07:19)
[2020-07-14] MEDS: Furosemide 40 MG/4 ML VIAL IVP SCH ×2 (07:19→19:51)
[2020-07-14] MEDS: Insulin DETEMIR 100 UNIT/ML X5UNITS SUBQ SCH ×2 (07:19→19:52)
[2020-07-14] MEDS: Docusate Oral Soln 100 MG/10 ML UDC GTUBE SCH ×2 (07:19→19:50)
[2020-07-14] MEDS: Chlorhexidine Rinse 15 ML MOUTHWASH MM SCH ×2 (07:19→19:50)
[2020-07-14] MEDS: Nystatin POWDER 30 GM BOTTLE TP SCH ×2 (07:20→19:44)
[2020-07-14] MEDS: Neosporin OINT 15 GM TUBE TP SCH ×2 (07:20→19:44)
[2020-07-14] MEDS: Midazolam HCl 50 MG/100 ML IV.SOLN IVC SCH (07:49)
[2020-07-14] MEDS: Dexmedetomidine HCl 400 MCG/100 ML MLS IVC SCH ×2 (10:15→19:43)
[2020-07-14] MEDS ORDERED: Insulin DETEMIR 100 UNIT/ML X5UNITS SUBQ ONE (11:00)
[2020-07-14 11:09] LABS: Bilirubin,Urine Negative (Negative); Blood,Urine Moderate (Negative); Clarity,Urine Clear (Clear); Color,Urine Yellow (Yellow); Glucose,Urine (UA) 70 mg/dL (Normal); Hyaline Casts,Urine Few per lpf (None Seen); Ketones,Urine Negative (Negative); Leukocyte Esterase,Urine Negative (Negative); Mucus,Urine Few per lpf (None-Few); Nitrite,Urine Negative (Negative); Protein,Urine 30 mg/dL (Neg-Trace); Renal Epithelial Cells,Urine Moderate per hpf (None-Few); Specific Gravity,Urine 1.016 (1.010-1.025); Squamous Epithelial Cell,Urine Few per hpf (None-Few); Transitional Epi Cells,Urine Few per hpf (None-Few); WBC,Urine 0-3 per hpf (0-3)
[2020-07-14] MEDS: Meropenem 1,000 MG in Water for inj. (sterile) 20 ML IVP SCH ×3 (11:35→20:23)
[2020-07-14] MEDS ORDERED: 0.9 % Sodium Chloride 500 ML ONE (11:57)
[2020-07-14] MEDS ORDERED: Water for inj. (sterile) 20 ML IV ONE (19:46)
[2020-07-14] MEDS: FentaNYL (PF) 2,500 MCG/50 ML IV.SOLN IVC SCH (20:20)
[2020-07-15] MEDS: Dexmedetomidine HCl 400 MCG/100 ML MLS IVC SCH ×3 (01:43→12:32)
[2020-07-15] MEDS: Artificial Tears SOLN 15 ML BOTTLE BOTH EYES SCH ×3 (03:30→12:32)
[2020-07-15] MEDS: Ipratropium 1 PUFF INHALER IH SCH ×3 (03:43→11:13)
[2020-07-15] MEDS: Insulin LISPRO 300 UNITS/3 ML VIAL SUBQ SCH ×3 (03:48→12:33)
[2020-07-15 03:54] LABS: ABG Base Excess 10 mEq/L (-2 to 3); ABG HCO3 38 mEq/L (21-27); ABG Oxygen Saturation 92 % (95-98); ABG PCO2 66 mmHg (35-45); ABG PH 7.37 pH Units (7.32-7.45); ABG PO2 68 mmHg (85-104); ABG TCO2 40 mEq/L (20-26); Blood Gas Modality ASSIST CONTROL; Blood Gas VT 480 cc
[2020-07-15 04:01] LABS: VBG Ionized Calcium 1.05 mmol/L (1.15-1.35)
[2020-07-15 04:06] LABS: Basophils % 0.1 %; Monocytes % 5.1 %
[2020-07-15 04:08] LABS: Eosinophils # 0.2 K/mcL (0.0-0.6); Eosinophils % 1.3 %; Hematocrit 35.1 % (37.5-50.1); Hemoglobin 10.6 g/dL (12.9-16.9); Immature Granulocytes % 1.7 % (0-4); Immature Platelets 15.2 % (1.1-6.1); Lymphocytes # 2.3 K/mcL (0.6-4.6); Mean Corpuscular HGB Conc 30.2 g/dL (31.6-35.5); Mean Corpuscular Hemoglobin 29.9 pg (28.0-33.3); Mean Corpuscular Volume 99.2 fL (83.0-100.0); Mean Platelet Volume 13.5 fL (9.4-12.4); Monocytes # 0.6 K/mcL (0.0-1.3); Neutrophils # 8.8 K/mcL (1.6-8.9); Red Blood Count 3.54 M/mcL (4.19-5.50); Red Cell Distribution Width 13.4 % (11.5-14.5); Segmented Neutrophils % 72.8 %; White Blood Count 12.1 K/mcL (4.3-11.1)
[2020-07-15 04:10] LABS: Platelet Count 71 K/mcL (140-400)
[2020-07-15 04:32] LABS: Anisocytosis 1+ (Not Present); Platelet Estimate Decreased (Normal)
[2020-07-15 04:36] LABS: Alanine Aminotransferase 47 Units/L (7-52); Albumin 2.4 g/dL (3.5-5.7); Albumin/Globulin Ratio 0.6 (1.1-2.2); Alkaline Phosphatase 67 Units/L (34-104); Aspartate Amino Transferase 33 Units/L (13-39); BUN/Creatinine Ratio 65 (6-26); Bilirubin,Direct 0.2 mg/dL (0.0-0.2); Bilirubin,Indirect 0.4 mg/dL (0.0-1.0); Bilirubin,Total 0.6 mg/dL (0.3-1.0); Blood Urea Nitrogen 51 mg/dL (8-23); Calcium 8.3 mg/dL (8.6-10.3); Carbon Dioxide 37 mEq/L (23-29); Chloride 104 mEq/L (98-107); Globulin 3.7 g/dL (2.4-3.5); Glucose 204 mg/dL (70-105); Magnesium 2.2 mg/dL (1.6-2.6); Osmolality,Calculated 320 (280-300); Phosphorous 2.6 mg/dL (2.7-4.5); Potassium 4.3 mEq/L (3.5-5.1); Sodium 145 mEq/L (136-145); Total Protein 6.1 g/dL (6.4-8.9); eGFR For African Americans > 60 (> 60); eGFR For Non-African Americans > 60 (> 60)
[2020-07-15] MEDS: Potassium Phosphate 44 MEQ in 0.9 % Sodium Chloride 250 ML IVPB PRN (05:33)
[2020-07-15] MEDS: *HR* Enoxaparin 40 MG/0.4 ML SYRINGE SQ SCH (05:36)
[2020-07-15] MEDS: Meropenem 1,000 MG in Water for inj. (sterile) 20 ML IVP SCH ×2 (05:36→12:33)
[2020-07-15 08:41] LABS: Influenza A PCR Body Fluid NOT DETECTED; Influenza B PCR Body Fluid NOT DETECTED; RVP Body Fluid Source BAL
[2020-07-15] MEDS ORDERED: *HR* Midazolam HCl 5 MG/5 ML VIAL IVP ONE (08:46)
[2020-07-15] MEDS: Pantoprazole 40 MG VIAL IVP SCH (08:47)
[2020-07-15] MEDS: Cholecalciferol (D-3) 1,000 UNIT (25MCG) TABLET PO SCH (08:47)
[2020-07-15] MEDS: Chlorhexidine Rinse 15 ML MOUTHWASH MM SCH (08:47)
[2020-07-15] MEDS: Furosemide 40 MG/4 ML VIAL IVP SCH (08:48)
[2020-07-15] MEDS: Dexamethasone 4 MG/ML VIAL IVP SCH (08:48)
[2020-07-15] MEDS: *HR* Midazolam HCl 5 MG/5 ML VIAL IVP ONE ×2 (08:49→11:34)
[2020-07-15] MEDS: Docusate Oral Soln 100 MG/10 ML UDC GTUBE SCH (08:49)
[2020-07-15] MEDS: Neosporin OINT 15 GM TUBE TP SCH (08:50)
[2020-07-15] MEDS: Nystatin POWDER 30 GM BOTTLE TP SCH (08:50)
[2020-07-15] MEDS: Insulin DETEMIR 100 UNIT/ML X5UNITS SUBQ SCH (08:50)
[2020-07-15 11:19] LABS: RSV PCR Body Fluid NOT DETECTED
[2020-07-15] MEDS ORDERED: *HR* LORazepam 2 MG/ML VIAL IVP PRN (13:20)
[2020-07-15] MEDS ORDERED: Morphine Sulfate Oral CONC 10 MG/0.5 ML ORAL.SYG SL PRN (13:21)
[2020-07-15] MEDS ORDERED: Atropine 1% Opth Drops 100 DROP/5 ML BOTTLE SL PRN (13:22)
[2020-07-15 14:26] VITALS: BP 85/56
[2020-07-15] MEDS: Norepinephrine 4 MG/254 ML IV.SOLN IVC SCH (15:13)
[2020-07-16 02:03] LABS: HSV Source BAL
== END 2020-07-15 16:40 | disposition expired | DRG 207 ==
LOC: SUATTDRO → 2NENU 11:05 → EMEROOARM 11:05 → SUATTDRO 15:51 → 2NENU 15:54 → ICNU 06-29 05:07
PROVIDERS: ADMIT Internal Medicine; ATTEND Family Medicine